=== PATIENT | female | born 1940 | race Caucasian/White ===

== ENCOUNTER 2019-06-21 10:32 | Inpatient (IN) | payer MEDICARE ==
[~2019-06-21] VITALS: Ht 157.5 cm; Wt 76.2 kg
[2019-06-21] MEDS ORDERED: ALBUTEROL/IPRATROPIUM 3 ML NEB NEB ONE (10:45)
[2019-06-21] MEDS ORDERED: METHYLPREDNISOLONE SOD SUCC 125 MG/2ML VIAL IV ONE (10:45)
[2019-06-21 11:46] LABS: BASOPHILS % 0.4 % (0.0-1.0); EOSINOPHILS # (AUTO) 0.2 (0.0-0.4); EOSINOPHILS % 2.4 % (0.0-6.0); HEMATOCRIT 38.3 % (34.2-44.1); HEMOGLOBIN 13.1 g/dL (12.0-16.0); LYMPHOCYTES # (AUTO) 1.5 (1.0-3.2); LYMPHOCYTES % 18.7 % (18.0-39.1); MEAN CORPUSCULAR HEMOGLOBIN 32.5 pg (28-32); MEAN CORPUSCULAR HGB CONC 34.2 g/dL (31-35); MONOCYTES # (AUTO) 0.5 (0.2-0.8); MONOCYTES % 5.6 % (4.4-11.3); NEUTROPHILS % 72.8 % (38.7-80.0); PLATELET COUNT 202 x10e3/uL (140-360); RED BLOOD COUNT 4.03 x10e6/uL (3.6-5.1); RED CELL DISTRIBUTION WIDTH 11.8 % (11.7-14.4)
[2019-06-21 12:04] LABS: ALANINE AMINOTRANSFERASE 8 IU/L (0-55); ALBUMIN 3.7 g/dL (3.5-5.0); ALKALINE PHOSPHATASE 98 IU/L (40-150); ANION GAP 13.8 mmol/L (8-16); BLOOD UREA NITROGEN 19 mg/dL (7-26); BUN/CREATININE RATIO 23 (6-25); CALCIUM 10.4 mg/dL (8.4-10.2); CARBON DIOXIDE 23 mmol/L (22-29); CHLORIDE 97 mmol/L (98-107); CREATINE KINASE 31 IU/L (29-168); CREATININE, SERUM 0.81 mg/dL (0.57-1.11); EST GLOMERULAR FILTRATION RATE > 60 ML/MIN (60-); GLUCOSE 173 mg/dL (74-118); POTASSIUM 4.8 mmol/L (3.5-5.1); SODIUM 129 mmol/L (136-145)
--- NOTE | 2019-06-21 12:17 | NUR ---
straight cath inserted for ua via aseptic technique per md orders; urine output approx 30 cc; ua collected and sent to lab
[2019-06-21 12:37] LABS: CLARITY,URINE CLOUDY (CLEAR); COLOR,URINE YELLOW (YELLOW)
[2019-06-21 12:38] LABS: BILIRUBIN,URINE NEGATIVE (NEGATIVE); KETONES,URINE NEGATIVE (NEGATIVE); LEUKOCYTE ESTERASE ,URINE NEGATIVE (NEGATIVE); NITRITE,URINE NEGATIVE (NEGATIVE); PROTEIN,URINE DIPSTICK NEGATIVE (NEGATIVE); RBC,URINE 0-5 /HPF (0-5); URINE UROBILINOGEN 0.2 mg/dL (0.2 - 1)
[2019-06-21 12:39] LABS: BACTERIA,URINE MODERATE /HPF; EPITHELIAL CELLS,URINE MODERATE /LPF
[2019-06-21] MEDS ORDERED: MORPHINE SULFATE INJ 4 MG/ML INJ 1ML IV PRN ×2 (13:00→14:45)
--- NOTE | 2019-06-21 14:23 | Diagnostic Imaging Report ---
EXAM: CT Chest WITH contrast- Pulmonary Embolism Protocol INDICATION: Shortness of breath COMPARISON: None TECHNIQUE: Chest was scanned utilizing a multidetector helical scanner from the lung apex through the level of the diaphragm after administration of IV contrast. Thin section reconstructions were obtained with special concentration on the pulmonary arteries. Coronal and sagittal reformations were obtained. Pulmonary embolism protocol was performed. IV CONTRAST: 100 cc of Isovue 370 RADIATION DOSE: Total DLP: mGy*cm Dose modulation, iterative reconstruction, and/or weight based adjustment of the mA/kV was utilized to reduce the radiation dose to as low as reasonably achievable. COMPLICATIONS: None FINDINGS: LINES/ TUBES: None. PULMONARY ARTERIES: No filling defect is identified within the pulmonary arteries to the segmental level. The subsegmental pulmonary arteries are not well opacified. Main pulmonary artery measures 2.9 cm in diameter. LUNGS AND AIRWAYS: The central airways are patent. No focal consolidation or pulmonary edema. A right apical groundglass nodule measures up to 12 mm (series 3 image 22). Solid 4 mm left lower lobe pulmonary nodule (series 3 image 61). PLEURA: No pleural effusion. No pneumothorax. HEART AND MEDIASTINUM: There is a 2.0 x 1.9 cm hypodense nodule in the posterior right thyroid lobe. Coarse calcifications at the inferior aspect of the left thyroid lobe. No supraclavicular, mediastinal, or hilar lymphadenopathy. No axillary lymphadenopathy. The heart is not enlarged. No evidence of right heart strain. No pericardial effusion. Scattered atherosclerotic calcifications involve the coronary arteries, aorta, and great vessels. UPPER ABDOMEN: Limited contrast-enhanced images of the upper abdomen demonstrate no focal abnormality in the partially visualized liver, spleen, pancreas, or adrenals. There is a calcified gallstone in the partially visualized gallbladder. BONES: No acute osseous injury. Mild degenerative changes of the visualized spine. No suspicious lytic or blastic lesions. SOFT TISSUES: Unremarkable. IMPRESSION: No pulmonary embolism. Right apical groundglass nodule measures up to 12 mm. Left lower lobe solid 4 mm pulmonary nodule. Recommend chest CT at 6 months to confirm persistence, then CT every 2 years until 5 years of stable. 2.0 x 1.9 cm hypodense posterior right thyroid lobe nodule. Thyroid ultrasound is recommended for further evaluation. Cholelithiasis. Athetotic arterial calcifications including of the coronary arteries. Signed by: Jannette Turner MD on 06/21/2019 2:20 PM
[2019-06-21] MEDS ORDERED: ONDANSETRON HCL INJ 2MG/ML 2ML 2 MG/ML VIAL IV PRN (14:45)
--- OUTSIDE RECORDS SUMMARY | 2019-06-21 15:56 | XMS REPORT ---
Author Author [facility] Address Unknown Phone Unavailable Care Team Providers Care Electronics Processor Name Role Phone TAMICA HERNÁNDEZ Unavailable Unavailable Problems This patient has no known problems. Allergies, Adverse Reactions, Alerts This patient has no known allergies or adverse reactions. Medications This patient has no known medications. Results Test Description Test Time Test Comments Text Results Atomic Results Result Comments CT CHEST W 2019-06-21 14:08:00 [place] [address] Patient Name: DAPHNE ENGLAND MR #: [id number] : 1940 Age/Sex: 79/F Req #: [id number] Adm Physician: Ordered by: TAMICA HERNÁNDEZ DO Report #: [id number] Location: ER Room/Bed: Procedure: [id number] CT/CT CHEST W Exam Date: 06/21/19 Exam Time: 1300 REPORT STATUS: Signed EXAM: CT Chest WITH contrast- Pulmonary Embolism Protocol INDIC ATION: Shortness of breath COMPARISON: None TECHNIQUE: Chest was scanned utilizing a multidetector helical scanner from the lung apex through the level of the diaphragm after administration of IV contrast. Thin section reconstructions were obtained with special concentration on the pulmonary arteries. Coronal and sagittal reformations were obtained. Pulmonary embolism protocol was performed. IV CONTRAST: 100 cc of Isovue 370 RADIATION DOSE: Total DLP: mGy*cm Dose modulation, iterative reconstruction, and/or weight based adjustment of the mA/kV was utilized to reduce the radiation dose to as low as reasonably achievable. COMPLICATIONS: None FINDINGS: LINES/ TUBES: None. PULMONARY ARTERIES: No filling defect is identified within the pulmonary arteries to the segmental level. The subsegmental pulmonary arteries are not well opacified. Main pulmonary artery measures 2.9 cm in diameter. LUNGS AND AIRWAYS: The central airways are patent. No focal consolidation or pulmonary edema. A right apical groundglass nodule measures up to 12 mm (series 3 image 22). Solid 4 mm left lower lobe pulmonary nodule (series 3 image 61). PLEURA: No pleural effusion. No pneumothorax. HEART AND MEDIASTINUM: There is a 2.0 x 1.9 cm hypodense nodule in the posterior right thyroid lobe. Coarse calcifications at the inferior aspect of the left thyroid lobe. No supraclavicular, mediastinal, or hilar lymphadenopathy. No axillary lymphadenopathy. The heart is not enlarged. No evidence of right heart strain. No pericardial effusion. Scattered atherosclerotic calcifications involve the coronary arteries, aorta, and great vessels. UPPER ABDOMEN: Limited contrast-enhanced images of the upper abdomen demonstrate no focal abnormality in the partially visualized liver, spleen, pancreas, or adrenals. There is a calcified gallstone in the partially visualized gallbladder. B ONES: No acute osseous injury. Mild degenerative changes of the visualized spine. No suspicious lytic or blastic lesions. SOFT TISSUES: Unremarkable. IMPRESSION: No pulmonary embolism. Right apical groundglass nodule measures up to 12 mm. Left lower lobe solid 4 mm pulmonary nodule. Recommend chest CT at 6 months to confirm persistence, then CT every 2 years until 5 years of stable. 2.0 x 1.9 cm hypodense posterior right thyroid lobe nodule. Thyroid ultrasound is recommended for further evaluation. Cholelithiasis. Athetotic arterial calcifications including of the coronary arteries. Signed by: Ebony Turner MD on 06/21/2019 2:20 PM Dictated By: EBONY TURNER MD [id number] Transcribed By: SABA on 06/21/19 1420 COPY TO: TAMICA HERNÁNDEZ DO
--- NOTE | 2019-06-21 17:30 | NUR ---
Bilateral buttocks redness noted. Skin intact.
--- NOTE | 2019-06-21 17:30 | NUR ---
Received patient from ER. Family members at bedside. Denies pain.
--- NOTE | 2019-06-21 17:35 | NUR ---
Patient has redness/ rashes under the breast folds area and groin area. Skin intact, no open wounds.
[2019-06-21 17:51] VITALS: BP 144/64
[2019-06-21 17:52] VITALS: BP 144/64
[2019-06-21 17:54] VITALS: BP 144/64
[2019-06-21] MEDS ORDERED: LISINOPRIL10 MG PO (18:24)
[2019-06-21] MEDS ORDERED: GLIMEPIRIDE2 MG PO (18:24)
[2019-06-21] MEDS ORDERED: MONTELUKAST SOD10 MG PO (18:24)
[2019-06-21] MEDS ORDERED: SINEMET 25-1001 EACH PO (18:24)
[2019-06-21] MEDS ORDERED: VENTOLIN HFA18 GM INH (18:24)
[2019-06-21] MEDS ORDERED: MAGNESIUM OXID400 MG PO (18:24)
[2019-06-21] MEDS ORDERED: QUESTRAN PACKET4 GM PO (18:24)
[2019-06-21] MEDS ORDERED: METFORMIN HCL500 MG PO (18:24)
[2019-06-21] MEDS ORDERED: ZOLOFT50 MG PO (18:24)
[2019-06-21] MEDS ORDERED: POTASSIUM CHLO10 ME1 PO (18:24)
[2019-06-21] MEDS ORDERED: SODIUM CHLORIDE 0.9% 50ML 50 ML ONE (18:40)
[2019-06-21] MEDS ORDERED: IOPAMIDOL 370 MG/ML 200 ML INFUS..BTL INJ ONE (18:40)
--- NOTE | 2019-06-21 19:15 | NUR ---
Report given to awake overnight monitor. Respiration even and unlabored without SOB. Call light in reach.
--- NOTE | 2019-06-21 19:27 | NUR ---
Received report from previous nurse. Call light within reach. Family at bedside. Patient in bed.
[2019-06-21 19:51] LABS: CREATINE KINASE 30 IU/L (29-168)
[2019-06-21] MEDS ORDERED: HYDROCODONE/APAP 5MG-325MG TAB PO PRN (20:15)
[2019-06-21] MEDS ORDERED: ALBUTEROL/IPRATROPIUM 3 ML NEB NEB PRN (20:15)
[2019-06-21] MEDS ORDERED: DEXTROSE 50% SYRINGE 50 ML IV PRN (20:15)
--- NOTE | 2019-06-21 20:19 | NUR ---
Called and talk to Dr. Giron about patient needing covering for her sugar. He ordered moderate sliding scale, norco 5 mg PRN, Tylenol 650 mg PRN, melatonin 5 mg PRN, and Doneb. Also, to resume all home medication except potassium chloride and metformin
--- NOTE | 2019-06-21 20:25 | NUR ---
Called and talked to Dr. Giron about patient's blood sugar of 498. Dr. Giron said to give 20 units of Lispro and have hemoglobin A1C in the morning.
[2019-06-21] MEDS: INSULIN LISPRO 100 UNIT/1 ML 3ML VIAL SQ SCH (20:37)
[2019-06-21 20:55] VITALS: BP 158/65
[2019-06-21] MEDS ORDERED: MELATONIN 5 MG TABLET PO SCH (21:00)
[2019-06-21] MEDS ORDERED: MELATONIN 5 MG TABLET PO PRN (21:00)
[2019-06-21 21:09] VITALS: BP 158/65
[2019-06-21] MEDS ORDERED: HYDRALAZINE HCL 20 MG/ML VIAL IV PRN (22:15)
[2019-06-21] MEDS ORDERED: ALBUTEROL SULFATE HFA 8GM INHALATION AEROSOL INH PRN (22:30)
[2019-06-21] MEDS ORDERED: NYSTATIN 15 GM POWDER UD BTL TOP PRN (23:15)
[2019-06-22] VITALS (8 sets, daily range): BP systolic 115–195; BP diastolic 49–82
[2019-06-22] MEDS: CEFTRIAXONE SOD 1 GM/NS 50 ML 50 ML IV SCH ×2 (00:12→22:45)
[2019-06-22] MEDS: DOXYCYCLINE 100MG/NS 100ML 100 ML IV SCH ×3 (00:16→23:30)
[2019-06-22] MEDS ORDERED: SODIUM CHLORIDE 0.9% 250ML 250 ML ONE ×2 (00:20→22:55)
--- NOTE | 2019-06-22 02:48 | Consultation ---
DATE OF CONSULTATION: 06/21/2019 Pulmonary Medicine Consult REASON FOR REFERRAL: Hypoxemia. HISTORY OF PRESENT ILLNESS: Ms. Hu is a pleasant 79-year-old female with hypoxemia. The patient claims she has one month prodrome of shortness of breath, possible airways congestion. She was also no energy for the recent month. The patient went to a trip for [place] for five days. Two day, she was at [place] with reported elevation from 2800 m at the base to 3400 m top elevation. The patient was two days there, mostly inactive, visiting her daughter who lives there. However, the patient was hospitalized for another couple of days due to reported high-altitude pulmonary edema reportedly. The patient was previously on breathing treatments prior to going up to [place] as part baseline and her doctor recommended her to continue these prior to sending. The patient came back to [place]. However, the patient continues to have symptoms of malaise and shortness of breath. Therefore, she presents to [facility]. Chest x-ray demonstrates 34 mm main pulmonary artery trunk, bilateral mild patchy opacities including and nodular formations that are ground-glass, additional anterior curvature of the thoracic spine mainly. Oxygen saturation 92% on 3 L/minute nasal cannula oxygen. She is admitted and hospitalized for further evaluation. Additionally, CTA had demonstrated no pulmonary embolism and 2.0 x 1.9 cm right thyroid lobe nodule. The patient with history of allergies that are seasonal. She claims to be taken nebulized therapy including albuterol and ProAir inhaler for the allergies. She has no history of asthma. GERD 1-2 times per week and she is on Tums therapy. Her baseline exercise tolerance is one-half block to one block walking on flat surface using a walker for balance as she had many falls in the past. PAST MEDICAL HISTORY: Hypertension, diabetes, debility/weakness, allergies seasonal, mild GERD. MEDICATIONS: Medication list includes Ventolin, cholestyramine, glimepiride, magnesium, metformin, potassium chloride, Sinemet, lisinopril, montelukast, and sertraline. ALLERGIES: NO KNOWN DRUG ALLERGIES. SOCIAL HISTORY: No alcohol, no drugs. The patient smoked from age 31 to 44, two packs per day. 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 Currently lives with her daughter in a back apartment separate. FAMILY HISTORY: Noncontributory to this condition. REVIEW OF SYSTEMS: GENERALLY: No weight changes. OPHTHALMOLOGIC: No double vision. ENT: No mouth ulcers. IMMUNOLOGIC: No lupus. PULMONARY: No hemoptysis. CARDIAC: No TN. GASTROINTESTINAL: No constipation. GENITOURINARY: No blood in urine. DERMATOLOGIC: No rash. MUSCULOSKELETAL: Mild arthritis. DERMATOLOGIC: No rashes. PSYCHIATRIC: No active depression. OBJECTIVE: VITAL SIGNS: Afebrile, vital signs noted and reviewed per the chart record. 158/65, heart rate 95, other vitals per record. GENERAL: In no acute distress, talkative, pleasant, in bed. HEENT: Normocephalic and atraumatic. NECK: Supple. Throat midline. LUNGS: Bilateral air entry with reasonable air entry, limited evaluation due to the patient's posture. BACK: Possibly with anterior curvature at T-spine mainly. CARDIAC: S1, S2. No murmurs, rubs, or gallops. ABDOMINAL EXAM: Soft and nontender. EXTREMITIES: No clubbing, no cyanosis. There is no edema. INTEGUMENT: No rash, no purpura. LABORATORY DATA: 129 sodium, 4.8 potassium, 23 bicarbonate, 19 BUN, 0.8 creatinine. Lactic acid normal. LFTs mostly unremarkable. Calcium is 10.4. Total protein 7.4, albumin 3.7. 8 white count, 30 hematocrit, and 202 platelets. Urinalysis with 11-20 white blood cells. No RBCs. BNP less than 10. IMPRESSION: 1. Hypoxemia, suspect multifactorial. Highest considerations include possibility of chronic obstructive pulmonary disease, although family stated clearly no chronic obstructive pulmonary disease history. Possible kyphosis/extrathoracic lung restriction, rule out other disorders. 2. Suspected kyphosis. 3. Former smoker, quit long ago. [id number] history. Rule out chronic obstructive pulmonary disease. 4. History of possible bronchoreactive disease, asthma. 5. Seasonal allergies. 6. Mild gastroesophageal reflux disease. 7. Baseline debility, the patient declares balance related limitation. 8. Recent travel, recent treatment as high-altitude pulmonary edema per the patient. 9. Hypertension. 10. Diabetes. 11. Medication list including dopaminergic agent. 12. Multiple lung nodules, possible residual high-altitude pulmonary edema changes, possible pneumonia, possible other. Get Physical therapy to see the patient and check her functionality. When she is upright, check her posture. Considerations clearly for pulmonary function testing given the complex scenario here. The patient with CAT scan pneumonitis/nodules, treat for pneumonia over short course. The patient radiography needs followup until clearance. It is reasonable to treat her as possible asthma and to treat her definite history of allergies. Followup per oxygen as she weans off oxygen while she may need to go home on oxygen. It is hard to understand what happened in [place], noting that she did go into minimum altitude that are associated with high-altitude pulmonary edema, although there is definitely a syndrome that was worsening and initiated before she even traveled. Thank you very much, Dr. Giron, for this consult. Please call for questions. MD NEYMAR Sands/MODL /[id number]
--- NOTE | 2019-06-22 05:13 | History and Physical ---
CHIEF COMPLAINT: Shortness of breath. HISTORY OF PRESENT ILLNESS: This is a 79-year-old female, who has a history of type 2 diabetes, Parkinson disease, and hypertension, who presented to the emergency room with complaints of shortness of breath. The patient reports about a month ago she went to her primary care physician as she was planning a trip to go to [place]. At that time, she was told and she was cleared that [place] can good [place]. While she was there, she reports she was very hypoxic on high altitudes, went to a local emergency room, was found to be very hypoxic. The patient does not know of the actual O2 saturations and was admitted to the hospital. Upon discharge from there, she was not set up on any home O2. She was reportedly doing much better and was discharged home. After her trip from [place], she reported back to her primary care physician. She is very poor historian. She states that she was on oxygen, but then she stopped taking it, she could not describe exactly when it was stopped. Today, she reports increasing shortness of breath, ongoing for the last several days and came into the emergency room for further evaluation and management. The patient was seen and evaluated at bedside on the medical floor. She is currently doing well with no other issues at this time. She is on nasal cannula. She denies any chest pain or any palpitations. No history of any heart failure. She does report she was a smoker for about 12 years about 35 years ago. She is currently a nonsmoker. REVIEW OF SYSTEMS: 1. Pertinent Positives: Shortness of breath. 2. Pertinent Negatives: Denies any chest pain, palpitation, nausea, vomiting, diarrhea, dysuria, hematuria, frequency, urgency, lightheadedness, dizziness, abdominal pain, headaches, cough, congestion, fever, or any other complaints. The rest of 14-point review of systems are reviewed with the patient and are negative. ALLERGIES: NO KNOWN DRUG ALLERGIES. HOME MEDICATIONS: The patient takes albuterol, levodopa carbidopa 1 tablet b.i.d., Questran, , lisinopril, magnesium oxide, metformin, Singulair, potassium, and Zoloft. PAST MEDICAL HISTORY: Type 2 diabetes, hypertension, Parkinson disease, and history of depression. PAST SURGICAL HISTORY: Reports none. FAMILY HISTORY: Hypertension and diabetes. SOCIAL HISTORY: No drugs or alcohol. She is a former smoker 35 years ago, quit. She lives alone. Has children. PHYSICAL EXAMINATION: VITAL SIGNS: Temperature is 98.1, pulse 97, respiratory rate is 20, blood pressure 150/65, and pulse ox 92%. She is on 3 L nasal cannula. GENERAL: In no acute distress, alert and oriented x3. Cooperative on examination. HEENT: Head normocephalic and atraumatic. Eyes; pupils are equal, round, and reactive to light bilaterally. Extraocular movements intact bilaterally. Throat; no evidence of any erythema or exudates in the posterior pharynx. Has poor dentition. NECK: Supple. Good range of motion. PULMONARY: Clear to auscultation bilaterally. No wheezing, rales, or rhonchi. No crackles appreciated. CARDIOVASCULAR: Positive S1 and S2. No murmurs, rubs, or gallops appreciated. ABDOMEN: Soft, nondistended, and nontender to palpation. Bowel sounds present. MUSCULOSKELETAL: Strength is 5/5 throughout. No evidence of any muscle deficits on examination. No weakness appreciated. NEUROLOGIC: Cranial 2 through 12 are grossly intact. No evidence of any neurological deficits on exam. SKIN: Intact. Warm to touch. Good cap refill. PSYCHIATRIC: Normal affect and mood. EXTREMITIES: No edema. Good range of motion throughout. LABORATORY DATA: Lab findings show white count of 8.2, hemoglobin 13, Hematocrit is 38, and platelets of 202. Chemistry; sodium 129, potassium 4.8, chloride 97, bicarb 23, anion gap of 13, BUN is 19, creatinine is 0.81, and glucose is 173. Her lactic acid 11.6, but normal at this hospital, and calcium is 10.4. Total bilirubin is 0.6, AST 9, ALT 8, and alkaline phosphatase 98. CK 31, troponins were all negative. BNP is less than 10. Total protein 7.4, albumin is 3.7. Urinalysis, wbc's 11 to 20, cloudy urine. MICROBIOLOGY: Blood cultures are pending. CT of the chest PE protocol shows no evidence of any pulmonary embolism. There is a right apical ground-glass nodule measuring 12 mm. Left lower lobe solid 4 mm pulmonary nodule. Repeat CT as an outpatient. There is a 2 x 1.9 cm hypodense posterior right thyroid lobe nodule. Cholelithiasis. IMPRESSION: 1. Shortness of breath, unknown etiology at this time, workup in progress. 2. Morbid obesity. 3. Type 2 diabetes. 4. Hypertension. 5. History of depression. PLAN: At this time, Pulmonary has been consulted. CT chest PE protocol found to be negative for any pulmonary embolism. There is evidence of pulmonary nodules, will need outpatient followup. I discussed that with the patient as well. There is also some thyroid nodules, which I recommended for her to follow up as an outpatient, which she verbalized understanding. While here, we are going to resume her same home medications. Put her on insulin sliding scale. Get an A1c. She was given steroids from the ER physician. Put on neb treatments. Resume same antihypertensive medications. Add p.r.n. hydralazine. Pain control added. Lovenox for DVT prophylaxis. Heart healthy diet. We will also order a 2D echo as well at this time. MD EMILIA Odonnell/YAIR /[id number]
[2019-06-22 07:03] LABS: CREATINE KINASE MB 2.3 ng/mL (0-5.0)
--- NOTE | 2019-06-22 07:20 | NUR ---
Patient in bed. Call light within reach. Gave report to oncoming nurse.
[2019-06-22] MEDS: INSULIN LISPRO 100 UNIT/1 ML 3ML VIAL SQ SCH ×4 (07:30→21:00)
--- NOTE | 2019-06-22 08:48 | Diagnostic Imaging Report ---
Chest, 1 view, 06/22/2019. History: Pneumonia. Comparison: CT chest 06/21/2019. Findings: The cardiomediastinal silhouette and pulmonary vasculature are within normal limits for a portable exam. There is no focal consolidation or pleural effusion. There are no acute osseous or soft tissue abnormalities. Impression: Unremarkable portable chest. Signed by: Owen Millard on 06/22/2019 8:45 AM
[2019-06-22] MEDS: GLIMEPIRIDE 2 MG TAB PO SCH ×2 (08:55→16:27)
[2019-06-22] MEDS ORDERED: MONTELUKAST SODIUM 10 MG TAB PO SCH (09:00)
[2019-06-22] MEDS ORDERED: CARBIDOPA/LEVODOPA 25/100 TAB PO SCH (09:00)
[2019-06-22] MEDS ORDERED: LISINOPRIL 10 MG TAB PO SCH (09:00)
[2019-06-22] MEDS ORDERED: LISINOPRIL 20 MG TAB PO SCH (09:00)
[2019-06-22] MEDS: MAGNESIUM OXIDE 400 MG TAB PO SCH (10:00)
[2019-06-22] MEDS: MONTELUKAST SODIUM 10 MG TAB PO SCH (10:00)
[2019-06-22] MEDS: CARBIDOPA/LEVODOPA 25/100 TAB PO SCH ×2 (10:00→16:27)
--- NOTE | 2019-06-22 12:00 | Progress Note ---
DATE: 06/22/2019 Medicine Progress Note. SUBJECTIVE: The patient was doing well today with no complaints. She is still was on oxygen. Denies any shortness of breath. Pulmonary has come by to evaluate the patient for further management and care. OBJECTIVE: VITAL SIGNS: Temperature 97.5, pulse 88, respiratory rate 22, blood pressure was 195/82, pulse ox 95% on 2 L nasal cannula. GENERAL: Not in acute distress, alert and oriented x3. Cooperative on examination. HEENT: Head is normocephalic and atraumatic. Eyes; pupils are equal, round, and reactive to light bilaterally. Extraocular movements are intact bilaterally. NECK: Supple. Good range of motion. Throat; no evidence of erythema or exudates in the posterior pharynx. Has poor dentition. PULMONARY: Clear to auscultation bilaterally. No wheezing, rales, or rhonchi. No crackles appreciated. CARDIOVASCULAR: Positive S1, S2. No murmurs, rubs, or gallops. ABDOMEN: Soft, nondistended, and nontender to palpation. Bowel sounds present. MUSCULOSKELETAL: Strength is 5/5 throughout. No evidence of any muscle deficits on examination. No weakness appreciated. NEUROLOGIC: Cranial nerves II through XII grossly intact. No evidence of neurological exam. SKIN: Intact. Warm to touch. Good cap refill. PSYCHIATRIC: Normal affect and mood. EXTREMITIES: No edema. Good range of motion throughout. LAB FINDINGS: Show white count 8.2, hemoglobin 13, hematocrit is 38, and platelets of 202. Chemistry reviewed. Urinalysis negative. Blood cultures are pending. IMAGING STUDIES: Chest x-ray this morning shows unremarkable portable chest x-ray. IMPRESSION: 1. Hypoxemia with underlying shortness of breath with currently, which could be secondary to underlying chronic obstructive pulmonary disease. 2. Hypertension. 3. Type 2 diabetes. 4. History of depression. 5. Morbid obesity. 6. Pulmonary nodules-the patient will need outpatient followup with repeat CT at a later day as an outpatient and which the patient verbalized. PLAN: At this time, from a hypoxia standpoint, the workup is being performed by Pulmonary. We will follow up Pulmonary recommendations. The patient is on IV antibiotics, in the event this is an infectious etiology. We will get physical therapy as recommended by Pulmonary. In terms of her diabetes, we will continue with insulin sliding scale. Her A1c was found to be 8.1. We will continue to monitor closely in terms of her diabetes and sugars. In relation to her hypertension, blood pressure extremely elevated. I will go ahead and increase the lisinopril to 20 mg twice a day. There is also 2D echo pending some waiting for those final results. We will get PT and OT, heart healthy diet and Lovenox for DVT prophylaxis. I discussed plan of care with nursing staff as well and the patient verbalized understanding. MD EMILIA Odonnell/YAIR /[id number]
--- NOTE | 2019-06-22 12:30 | NUR ---
WITH STANDBY ASSIST AND USE OF WALKER, PT OOB TO BATHROOM , VOIDING WITHOUT DIFFICULTY, NOW SITTING IN BS CHAIR, CALL LIGHT WITHIN REACH
[2019-06-22] MEDS ORDERED: ONDANSETRON HCL 4 MG ORAL DISINTEGRATING TAB PO PRN (13:15)
--- NOTE | 2019-06-22 13:40 | NUR ---
WITH STANDBY ASSIST AND USE OF WALKER , PT OOB TO BR
--- NOTE | 2019-06-22 14:01 | NUR ---
REPORT TO MILAGROS CANNON TAKING OVER CARE OF PT, NO CHANGE IN CONDITION
[2019-06-22] MEDS: LISINOPRIL 20 MG TAB PO SCH (16:26)
[2019-06-22] MEDS: ENOXAPARIN SOD INJ 40 MG/0.4 ML SYR SC SCH (16:27)
--- NOTE | 2019-06-22 19:10 | NUR ---
Bedside rounds completed with morning nurse. Pt alert to name. Lying in bed HOB 30 degrees. Denies pain at this time. Family at bedside. Call landry within reach. Bed low and locked. Will continue to monitor.
--- NOTE | 2019-06-22 19:49 | NUR ---
Pulmonary Medicine Date: 06/22/19 SUBJECTIVE: 3 l/min oxygen. nasal cannula delivery. walked ate, BM+ she feels mildly better, not much REVIEW OF SYSTEMS: no chest pain, no epistaxis OBJECTIVE: VITAL SIGNS: vital signs noted and reviewed per the chart record. GENERAL: NAD, talkative, pleasant HEENT: Normocephalic and atraumatic. NECK: Supple. Throat midline. LUNGS: Bilateral reasonable air entry, no wheezes CARDIAC: S1, S2. No murmurs, rubs, or gallops. ABDOMINAL EXAM: Soft and nontender. EXTREMITIES: No clubbing, no cyanosis. no edema. INTEGUMENT: No rash, no purpura. LABORATORY DATA: no new updates IMPRESSION: 1. Hypoxemia, suspect multifactorial. Highest considerations include possibility of chronic obstructive pulmonary disease (although family states clearly that there is no chronic obstructive pulmonary disease history). Possible kyphosis/extrathoracic lung restriction, rule out other disorders. 2. Suspected significant kyphosis. 3. Former smoker, quit long ago. [id number] history. Rule out chronic obstructive pulmonary disease. 4. History of possible bronchoreactive disease, possible asthma. 5. Seasonal allergies. 6. Mild gastroesophageal reflux disease. 7. Baseline debility, the patient declares balance related limitation. 8. Recent travel, recent treatment as high-altitude pulmonary edema per the patient. 9. Hypertension. 10. Diabetes. 11. Medication list including dopaminergic agent. 12. Multiple lung nodules, possible residual high-altitude pulmonary edema pneumonitis possible pneumonia, possible other. Continue antibiotics PT mobilization, assess spine and functionality 2 view CXR Outpatient pulmonary function testing Needs follow up of the CAT scan pneumonitis/nodules, followup until clearance. Treat as possible asthma and treat her definite history of allergies. Wean off oxygen if feasible Thank you very much, Dr. Giron, for this consult. Please call for questions.
[2019-06-22] MEDS ORDERED: SERTRALINE HCL 50 MG TAB PO SCH (21:00)
[2019-06-22] MEDS: SERTRALINE HCL 50 MG TAB PO SCH (21:00)
[2019-06-22] MEDS: CHOLESTYRAMINE 4 GM PACKET PO SCH (22:00)
--- NOTE | 2019-06-22 22:01 | Diagnostic Imaging Report ---
EXAMINATION: CHEST 2 VIEWS INDICATION: Pneumonia. COMPARISON: None FINDINGS: PA and lateral views TUBES and LINES: None. LUNGS: Lung volumes are adequate. Obscuration of the inferior left heart border by a hazy opacity. Bibasilar atelectasis. PLEURA: No pleural effusion or pneumothorax. HEART AND MEDIASTINUM: The cardiomediastinal silhouette appears normal in size although the left inferior heart border is obscured. Aortic calcifications. BONES AND SOFT TISSUES: No acute osseous lesion. Soft tissues are unremarkable. Degenerative changes in the spine. UPPER ABDOMEN: No free air under the diaphragm. Surgical clips in the right upper quadrant IMPRESSION: Hazy opacity obscures the inferior left heart border, possibly due to atelectasis, mediastinal fat, or airspace disease such as pneumonia. Signed by: Vienet Betancourt DO on 06/22/2019 9:58 PM
[2019-06-23] VITALS (8 sets, daily range): BP systolic 104–129; BP diastolic 20–60
[2019-06-23 05:38] LABS: BASOPHILS % 0.4 % (0.0-1.0); EOSINOPHILS # (AUTO) 0.3 (0.0-0.4); EOSINOPHILS % 3.2 % (0.0-6.0); HEMATOCRIT 34.8 % (34.2-44.1); HEMOGLOBIN 11.7 g/dL (12.0-16.0); LYMPHOCYTES # (AUTO) 2.7 (1.0-3.2); LYMPHOCYTES % 33.4 % (18.0-39.1); MEAN CORPUSCULAR HGB CONC 33.6 g/dL (31-35); MEAN CORPUSCULAR VOLUME 95.1 fL (81-99); MONOCYTES # (AUTO) 0.5 (0.2-0.8); NEUTROPHILS # (AUTO) 4.6 (2.1-6.9); NEUTROPHILS % 56.8 % (38.7-80.0); PLATELET COUNT 187 x10e3/uL (140-360); RED BLOOD COUNT 3.66 x10e6/uL (3.6-5.1); RED CELL DISTRIBUTION WIDTH 11.6 % (11.7-14.4)
[2019-06-23 05:59] LABS: ANION GAP 11.6 mmol/L (8-16); BLOOD UREA NITROGEN 22 mg/dL (7-26); BUN/CREATININE RATIO 29 (6-25); CALCIUM 9.6 mg/dL (8.4-10.2); CARBON DIOXIDE 23 mmol/L (22-29); CHLORIDE 98 mmol/L (98-107); CREATININE, SERUM 0.75 mg/dL (0.57-1.11); EST GLOMERULAR FILTRATION RATE > 60 ML/MIN (60-); GLUCOSE 130 mg/dL (74-118); POTASSIUM 4.6 mmol/L (3.5-5.1); SODIUM 128 mmol/L (136-145)
--- NOTE | 2019-06-23 07:10 | NUR ---
PATIENT IS AWAKE AND IN STABLE CONDITION WITH NO S/S OF RESPIRATORY DISTRESS. NO PAIN VOICED. TELEMETRY APPLIED. 02 APPLIED AT 2L NC. CALL LIGHT IS WITHIN REACH, PATIENT INSTRUCTED TO CALL FOR ASSISTANCE NEEDED.
[2019-06-23] MEDS: INSULIN LISPRO 100 UNIT/1 ML 3ML VIAL SQ SCH ×4 (07:30→21:00)
[2019-06-23] MEDS: GLIMEPIRIDE 2 MG TAB PO SCH ×2 (10:08→16:49)
[2019-06-23] MEDS: CARBIDOPA/LEVODOPA 25/100 TAB PO SCH ×2 (10:08→16:49)
[2019-06-23] MEDS: MONTELUKAST SODIUM 10 MG TAB PO SCH (10:08)
[2019-06-23] MEDS: LISINOPRIL 20 MG TAB PO SCH ×2 (10:08→16:49)
[2019-06-23] MEDS: MAGNESIUM OXIDE 400 MG TAB PO SCH (10:08)
--- NOTE | 2019-06-23 12:19 | NUR ---
PATIENT OFF THE OXYGEN AND IS ON ROOM AIR- PATIENT WORKED WITH PHYSICAL THERAPY AND O2 SAT DECREASED TO 88. RECEIVED ORDER FROM DR. FULLER FOR HOME O2 EVAL IF PATIENT O2 SAT DECREASED BELOW 89.
[2019-06-23] MEDS: DOXYCYCLINE 100MG/NS 100ML 100 ML IV SCH (12:42)
--- NOTE | 2019-06-23 14:37 | Progress Note ---
DATE: 06/23/2019 Medicine Progress Note SUBJECTIVE: The patient reportedly feels much better today with no other issues. She is still on 2 L nasal cannula, which we are working on and trying to wean her off and if so she may need to qualify for home O2. Discussed with nursing staff. PHYSICAL EXAMINATION: VITAL SIGNS: Temperature 96.1, pulse 60, respiratory rate 21, blood pressure 120/60, pulse ox 96% on 2 L nasal cannula. GENERAL: Not in acute distress. Alert and oriented x3. Cooperative on examination. HEENT: Head; normocephalic, atraumatic. Eyes; pupils are equal, round, and reactive to light bilaterally. Extraocular movements are intact bilaterally. Throat; no evidence of erythema or exudates in the posterior pharynx. Has poor dentition. NECK: Supple. Good range of motion. PULMONARY: Clear to auscultation bilaterally. No wheezing, rales, or rhonchi. No crackles appreciated. CARDIOVASCULAR: Positive S1, S2. No murmurs, rubs, or gallops. ABDOMEN: Soft, nondistended, and nontender to palpation. Bowel sounds present. MUSCULOSKELETAL: Strength is 5/5 throughout. No evidence of any muscle deficits on examination. No weakness appreciated. NEUROLOGIC: Cranial nerve II through XII grossly intact. No evidence of any neurological deficits on exam. SKIN: Intact. Warm to touch. Good cap refill. PSYCHIATRIC: Normal affect and mood. EXTREMITIES: No edema. Good range of motion throughout. LABORATORY DATA: Labs show white count 8.1, hemoglobin 11.7, hematocrit 34, platelets of 187. Chemistry; sodium 128, potassium 4.6, chloride 98, bicarb 23, anion gap of 11, BUN 23, creatinine 0.75, glucose is 130, calcium is 9.6. MICROBIOLOGY: Blood cultures are no growth. Chest x-ray from last night shows hazy opacity obscures inferior left heart border, possibly due to atelectasis, mediastinal fat, or airspace disease such as pneumonia. 2D echo, EF of 56%. IMPRESSION: 1. Hypoxemia secondary to shortness of breath, could be secondary to chronic obstructive pulmonary disease. Possible underlying infectious etiology. 2. Hypertension. 3. Type 2 diabetes. 4. History of depression. 5. Morbid obesity. 6. Pulmonary nodules. We will need outpatient follow. Repeat CT at a later date. PLAN: At this time, hypoxia workup is being managed by Pulmonary. We will continue follow pulmonary recommendations. Continue with IV antibiotics for possible underlying infectious etiology. We will also try to wean her off oxygen if possible. If not, we will try to arrange for home O2. Continue with insulin sliding scale for her diabetes. Her blood pressure is much improved with the addition of lisinopril. As for her 2D echo results shows an EF of 56%, which is stable. Continue working with PT and OT. Lovenox for DVT prophylaxis. Discussed plan of care with nursing staff and the patient at bedside and she verbalized understanding. MD EMILIA Odonnell/YAIR /[id number]
--- NOTE | 2019-06-23 15:20 | NUR ---
WOUND CARE CONSULTATION: THIS IS A 79 YEAR OLD FEMALE PATIENT ADMITTED TO [facility] FOR HYPOXIA AND SHORTNESS OF BREATH. HEAD TO TOE SKIN ASSESSMENT PERFORMED. PATIENT HAS DENUDED AREAS OF SKIN NOTED TO BILATERAL BREAST FOLDS WITH YEASTLIKE APPEARANCE. SKIN INTACT. LABS: WBC8.15 HGB11.7 [id number] ALB3.7 RECOMMENDATIONS: -CONTINUE ALTERNATING PRESSURE RELIEF MATTRESS. -CONTINUE BILATERAL HEEL PROTECTORS WITH PILLOW SUSPENSION. -TURN EVERY 2 HOURS AND PRN. -NURSING TO CLEAN BILATERAL BREAST FOLDS WITH SOAP AND WATER, PAT DRY, APPLY NYSTATIN POWDER BID AND PRN. THANK YOU FOR THIS WOUND CARE CONSULT. Addendum: 06/23/19 at 1532 by Vianey Rizzo RN Amended: Links added.
[2019-06-23] MEDS: ENOXAPARIN SOD INJ 40 MG/0.4 ML SYR SC SCH (16:49)
--- NOTE | 2019-06-23 19:04 | NUR ---
Pulmonary Medicine Date: 06/23/19 SUBJECTIVE: RA fio2 93% saturation about to do therapy ate, BM+ REVIEW OF SYSTEMS: no chest pain, no epistaxis OBJECTIVE: VITAL SIGNS: vital signs noted and reviewed per the chart record. GENERAL: NAD, talkative, pleasant HEENT: Normocephalic and atraumatic. NECK: Supple. Throat midline. LUNGS: Bilateral reasonable air entry, no wheezes CARDIAC: S1, S2. No murmurs, rubs, or gallops. ABDOMINAL EXAM: Soft and nontender. EXTREMITIES: No clubbing, no cyanosis. no edema. INTEGUMENT: No rash, no purpura. LABORATORY DATA: no new updates IMPRESSION: 1. Hypoxemia, suspect multifactorial. Highest considerations include possibility of chronic obstructive pulmonary disease (although family states clearly that there is no chronic obstructive pulmonary disease history). Some kyphosis/extrathoracic lung restriction suspected, rule out other disorders. 2. kyphosis NOS. 3. Former smoker, quit long ago. [id number] history. Rule out chronic obstructive pulmonary disease. 4. History of possible bronchoreactive disease, possible asthma. 5. Seasonal allergies. 6. Mild gastroesophageal reflux disease. 7. Baseline debility, the patient declares balance related limitation. 8. Recent travel, recent treatment as high-altitude pulmonary edema per the patient. 9. Hypertension. 10. Diabetes. 11. Medication list including dopaminergic agent. 12. Multiple lung nodules, possible residual high-altitude pulmonary edema pneumonitis possible pneumonia, possible other. Continue antibiotics PT mobilization, assess spine and functionality 2 view CXR noted, some kyphosis element supported --needs outpatient pulmonary function testing to assess the functional restriction Needs follow up of the CAT scan pneumonitis/nodules, followup until clearance. Treat as possible asthma and treat her definite history of allergies. Wean off oxygen if feasible . check progress with PT Thank you very much, Dr. Giron, for this consult. Please call for questions.
--- NOTE | 2019-06-23 19:21 | NUR ---
PATIENT IS IN STABLE CONDITION WITH NO S/S OF RESPIRATORY DISTRESS. NO PAIN VOICED. 02 APPLIED. FAMILY MEMBERS PRESENT IN ROOM. CALL LIGHT IS WITHIN REACH, PATIENT INSTRUCTED TO CALL FOR ASSISTANCE NEEDED. WALKER AVAILABLE NEAR PATIENT'S BEDSIDE. BEDSIDE REPORT GIVEN TO ONCOMING NURSE.
[2019-06-23] MEDS: NYSTATIN 15 GM POWDER UD BTL TOP SCH (21:09)
[2019-06-23] MEDS: CHOLESTYRAMINE 4 GM PACKET PO SCH (21:09)
[2019-06-23] MEDS: SERTRALINE HCL 50 MG TAB PO SCH (22:23)
[2019-06-23] MEDS: CEFTRIAXONE SOD 1 GM/NS 50 ML 50 ML IV SCH (23:23)
[2019-06-24] VITALS (9 sets, daily range): BP systolic 101–131; BP diastolic 50–71
[2019-06-24] MEDS: DOXYCYCLINE 100MG/NS 100ML 100 ML IV SCH ×3 (00:39→22:51)
[2019-06-24] MEDS: ACETAMINOPHEN 325 MG TAB PO PRN (04:51)
--- NOTE | 2019-06-24 07:05 | NUR ---
PATIENT IS AWAKE AND IN STABLE CONDITION WITH NO S/S OF RESPIRATORY DISTRESS. NO PAIN VOICED. 02 APPLIED. WALKER AVAILABLE FOR PATIENT NEAR BEDSIDE. CALL LIGHT IS WITHIN REACH, PATIENT INSTRUCTED TO CALL FOR ASSISTANCE NEEDED.
[2019-06-24] MEDS: INSULIN LISPRO 100 UNIT/1 ML 3ML VIAL SQ SCH ×4 (07:30→21:00)
[2019-06-24] MEDS: MONTELUKAST SODIUM 10 MG TAB PO SCH (08:35)
[2019-06-24] MEDS: CARBIDOPA/LEVODOPA 25/100 TAB PO SCH ×2 (08:35→17:34)
[2019-06-24] MEDS: LISINOPRIL 20 MG TAB PO SCH ×2 (08:36→17:35)
[2019-06-24] MEDS: MAGNESIUM OXIDE 400 MG TAB PO SCH (08:36)
[2019-06-24] MEDS: NYSTATIN 15 GM POWDER UD BTL TOP SCH ×2 (08:36→21:46)
[2019-06-24] MEDS: GLIMEPIRIDE 2 MG TAB PO SCH ×2 (08:36→17:34)
--- NOTE | 2019-06-24 13:40 | NUR ---
Pulmonary Medicine Date: 06/24/19 SUBJECTIVE: 87% saturation on exertion, RA RA fio2 eating well BM REVIEW OF SYSTEMS: no chest pain, no epistaxis OBJECTIVE: VITAL SIGNS: vital signs noted and reviewed per the chart record. GENERAL: NAD, talkative, pleasant HEENT: Normocephalic and atraumatic. NECK: Supple. Throat midline. LUNGS: Bilateral reasonable air entry, no wheezes CARDIAC: S1, S2. No murmurs, rubs, or gallops. ABDOMINAL EXAM: Soft and nontender. EXTREMITIES: No clubbing, no cyanosis. no edema. INTEGUMENT: No rash, no purpura. LABORATORY DATA: no new updates IMPRESSION: 1. Hypoxemia, suspect multifactorial. Highest considerations include possibility of chronic obstructive pulmonary disease (although family states clearly that there is no chronic obstructive pulmonary disease history). Some kyphosis/extrathoracic lung restriction suspected, rule out other disorders. 2. kyphosis NOS. 3. Former smoker, quit long ago. [id number] history. Rule out chronic obstructive pulmonary disease. 4. History of possible bronchoreactive disease, possible asthma. 5. Seasonal allergies. 6. Mild gastroesophageal reflux disease. 7. Baseline debility, the patient declares balance related limitation. 8. Recent travel, recent treatment as high-altitude pulmonary edema per the patient. 9. Hypertension. 10. Diabetes. 11. Medication list including dopaminergic agent. 12. Multiple lung nodules, possible residual high-altitude pulmonary edema pneumonitis possible pneumonia, possible other. Continue antibiotics PT mobilization, assess spine furtherand functionality 2 view CXR noted, some kyphotic element supported --needs outpatient pulmonary function testing to assess the component of functional restriction Needs follow up of the CAT scan pneumonitis/nodules, followup until clearance. Treat as possible asthma and treat her definite history of allergies. Wean off oxygen if feasible. low level indication for home oxygen, but patient wants it. Thank you very much, Dr. Giron, for this consult. Please call for questions.
--- NOTE | 2019-06-24 16:42 | Progress Note ---
DATE: 06/24/2019 Medicine Progress Note SUBJECTIVE: The patient reports feeling much better today with no complaints. She does qualify for her home O2. No overnight events. PHYSICAL EXAMINATION: VITAL SIGNS: Temperature 97.6, pulse is 68, respiratory rate is 20, blood pressure is 120/60, and pulse ox 97% on 3 L nasal cannula. GENERAL: Not in acute distress. Alert and oriented x3. Cooperative on examination. HEENT: Head; normocephalic, atraumatic. Eyes; pupils are equal, round, and reactive to light bilaterally. Extraocular movements intact bilaterally. Throat; no evidence of erythema or exudates in the posterior pharynx. Has poor dentition. NECK: Supple. Good range of motion. PULMONARY: Clear to auscultation bilaterally. No wheezing, no rales, no rhonchi, no crackles appreciated. CARDIOVASCULAR: Positive S1 and S2. No murmurs, rubs, or gallops appreciated. ABDOMEN: Soft, nondistended, and nontender to palpation. Bowel sounds present. MUSCULOSKELETAL: Strength is 5/5 throughout. No evidence of any muscle deficits on examination. No weakness appreciated. NEUROLOGIC: Cranial nerve II through XII grossly intact. No evidence of any neurological deficits on exam. SKIN: Intact. Warm to touch. Good cap refill. PSYCHIATRIC: Normal affect and mood. EXTREMITIES: No edema. Good range of motion throughout. LABORATORY FINDINGS: Show white count is 8.1. CBCs are normal. Chemistries reviewed and stable. MICROBIOLOGY: Blood cultures are negative. IMPRESSION: 1. Hypoxemia secondary to shortness of breath, concerns for underlying chronic obstructive pulmonary disease as well as possible underlying infectious etiology. 2. Hypertension. 3. Type 2 diabetes. 4. History of depression. 5. Morbid obesity. 6. Pulmonary nodules-needs outpatient followup with piece dyer. PLAN: At this time, she continues to be on antibiotics, neb treatments as well. She is improving. She does qualify for home O2, which we are working on getting as well for home. Continue with sliding scale for her underlying diabetes. Blood pressure is controlled. Continue with same regimen. A 2D echo was found to be EF of 56%. No further workup needed. PT and OT daily. Lovenox for DVT prophylaxis. If the patient is able to get oxygen by tomorrow, she can potentially be discharged, if cleared by Pulmonary. MD EMILIA Odonnell/YAIR /[id number]
[2019-06-24] MEDS: ENOXAPARIN SOD INJ 40 MG/0.4 ML SYR SC SCH (17:34)
--- NOTE | 2019-06-24 19:51 | NUR ---
PATIENT IS IN STABLE CONDITION WITH NO S/S OF RESPIRATORY DISTRESS. NO PAIN VOICED. CALL LIGHT IS WITHIN REACH, PATIENT INSTRUCTED TO CALL FOR ASSISTANCE NEEDED. REPORT GIVEN TO ONCOMING NURSE.
[2019-06-24] MEDS: CHOLESTYRAMINE 4 GM PACKET PO SCH (21:45)
[2019-06-24] MEDS: SERTRALINE HCL 50 MG TAB PO SCH (21:45)
[2019-06-24] MEDS: CEFTRIAXONE SOD 1 GM/NS 50 ML 50 ML IV SCH (22:20)
[2019-06-25] VITALS (8 sets, daily range): BP systolic 137–159; BP diastolic 58–72
[2019-06-25] MEDS: ACETAMINOPHEN 325 MG TAB PO PRN ×3 (04:48→19:38)
--- NOTE | 2019-06-25 07:10 | NUR ---
PATIENT IS IN STABLE CONDITION WITH NO S/S OF RESPIRATORY DISTRESS. NO PAIN VOICED. DAUGHTER PRESENT IN ROOM. CALL LIGHT IS WITHIN REACH, PATIENT INSTRUCTED TO CALL FOR ASSISTANCE NEEDED.
[2019-06-25] MEDS: INSULIN LISPRO 100 UNIT/1 ML 3ML VIAL SQ SCH ×4 (07:30→20:48)
[2019-06-25 07:40] LABS: BASOPHILS % 0.3 % (0.0-1.0); EOSINOPHILS # (AUTO) 0.3 (0.0-0.4); EOSINOPHILS % 4.9 % (0.0-6.0); HEMATOCRIT 34.9 % (34.2-44.1); HEMOGLOBIN 11.7 g/dL (12.0-16.0); LYMPHOCYTES % 33.4 % (18.0-39.1); MEAN CORPUSCULAR HGB CONC 33.5 g/dL (31-35); MEAN CORPUSCULAR VOLUME 95.4 fL (81-99); MONOCYTES # (AUTO) 0.4 (0.2-0.8); MONOCYTES % 6.9 % (4.4-11.3); NEUTROPHILS # (AUTO) 3.3 (2.1-6.9); NEUTROPHILS % 54.3 % (38.7-80.0); PLATELET COUNT 197 x10e3/uL (140-360); RED BLOOD COUNT 3.66 x10e6/uL (3.6-5.1); RED CELL DISTRIBUTION WIDTH 11.7 % (11.7-14.4)
[2019-06-25 08:01] LABS: ANION GAP 12.6 mmol/L (8-16); BLOOD UREA NITROGEN 20 mg/dL (7-26); BUN/CREATININE RATIO 31 (6-25); CALCIUM 9.5 mg/dL (8.4-10.2); CARBON DIOXIDE 23 mmol/L (22-29); CHLORIDE 102 mmol/L (98-107); CREATININE, SERUM 0.64 mg/dL (0.57-1.11); EST GLOMERULAR FILTRATION RATE > 60 ML/MIN (60-); GLUCOSE 97 mg/dL (74-118); POTASSIUM 4.6 mmol/L (3.5-5.1); SODIUM 133 mmol/L (136-145)
[2019-06-25] MEDS: MAGNESIUM OXIDE 400 MG TAB PO SCH (08:21)
[2019-06-25] MEDS: GLIMEPIRIDE 2 MG TAB PO SCH ×2 (08:21→17:17)
[2019-06-25] MEDS: CARBIDOPA/LEVODOPA 25/100 TAB PO SCH ×2 (08:22→17:16)
[2019-06-25] MEDS: MONTELUKAST SODIUM 10 MG TAB PO SCH (08:22)
[2019-06-25] MEDS: LISINOPRIL 20 MG TAB PO SCH ×2 (08:22→17:17)
[2019-06-25] MEDS: NYSTATIN 15 GM POWDER UD BTL TOP SCH ×2 (08:22→20:49)
[2019-06-25] MEDS: DOXYCYCLINE 100MG/NS 100ML 100 ML IV SCH (11:04)
--- NOTE | 2019-06-25 11:30 | NUR ---
IV INFILTRATED- PATIENT REFUSED FOR A NEW IV.
--- NOTE | 2019-06-25 12:56 | NUR ---
DR. FULLER ON THE UNIT- DR. FULLER AWARE OF PATIENT'S REFUSAL FOR A NEW IV. NEW ORDERS RECEIVED.
--- NOTE | 2019-06-25 13:47 | NUR ---
Pt can go home if home oxygen can be arranged. JOSSIE notified Roddy with [facility]. He stated he should be able to provide. Clinicals and orders faxed to [facility]. Notified Marie LINARES, pt nurse and also Dr. Mack Beverly office [phone] fax [phone] Roddy (liaison) cell [phone]
--- NOTE | 2019-06-25 15:42 | Discharge Summary ---
FINAL DISCHARGE DIAGNOSES: 1. Hypoxia, likely secondary to chronic obstructive pulmonary disease as well as possible underlying infectious etiology. 2. Hypertension. 3. Type 2 diabetes. 4. History of depression. 5. Morbid obesity. 6. Pulmonary nodules-needs outpatient followup with section gang worker. 7. Thyroid nodule, needs outpatient followup with her PCP with referral to Endocrinology. This was discussed with the patient. She verbalized understanding. CONSULTANTS: Pulmonary. PHYSICAL EXAMINATION: VITAL SIGNS: Temperature is 96, pulse 78, respiratory rate is 21, blood pressure 154/72, and pulse ox 95% on 3 L nasal cannula. LABORATORY FINDINGS: Show white count 6, hemoglobin 11.7, hematocrit is 35, and platelets of 197. Chemistry; sodium 133, potassium 4.6, chloride 102, bicarbonate 23, anion gap of 10, BUN is 20, creatinine is 0.64, glucose 97, calcium 9.5. Hemoglobin A1c was 8.1. Total bilirubin is 0.6, AST 9, ALT 8, alkaline phosphatase is 98. CK is 31. Troponins were all negative. Total protein 7.4, albumin was 3.7. Urinalysis was negative. MICROBIOLOGY: Blood cultures were negative. IMAGING STUDIES: CT chest PE protocol shows no pulmonary embolism. There is some right apical ground-glass nodule measures 12 mm. Left lower lobe solid 4 mm pulmonary nodule. Needs a repeat imaging as an outpatient. She does have underlying 2 x 1.9 cm hypodense posterior right thyroid lobe nodule and needs outpatient followup. I did discuss this with the patient at bedside and she verbalized understanding to follow up with her PCP. Also has some cholelithiasis and atherosclerotic arterial calcifications seen. Chest x-ray unremarkable. Portable chest x-ray, repeat chest x-ray again shows some haziness in the inferior left heart border, possibly due to atelectasis, mediastinal fat or airspace disease such as pneumonia. HOSPITAL COURSE: This is a 79-year-old female, who came into the emergency room with underlying hypoxia, states that she is very short of breath on examination, has been like this for significant period of time. The patient reports that she was a chronic smoker for significant number of years and she was on home O2, but then apparently she was taking off oxygen. The patient was admitted and Pulmonary was consulted. CTA of the chest shows no evidence of pulmonary embolism, but there was some evidence of some ground-glass opacities. As per Pulmonary, they recommended treating with antibiotics IV and then discharged on oral antibiotics, doxycycline and Levaquin. She will follow up very close with Pulmonary as an outpatient. Her CTA PE protocol was negative for pulmonary embolism. She did qualify for home O2, which was arranged for her for home. She also used neb treatments when she was in the hospital and improved tremendously while in the hospital stay. She was ambulating with minimal shortness of breath and back to normal baseline prior to being discharged. As for her blood pressure and diabetes, it was well managed and controlled. A 2D echo shows an EF of 56%, but no further cardiac workup was needed. She also was found to have some pulmonary nodules, in which she needs to follow up with section gang worker very closely as an outpatient. She was also found to have some thyroid nodules and I also advised the patient to follow up with her PCP with referral to Endocrinology. Otherwise, the patient was doing well with no other complaints. She verbalized understanding. On the day of discharge, vital signs were stable, labs reviewed and stable. The patient is seen and evaluated, examined thoroughly on the day of discharge. No other complaints. The patient verbalized understanding and agrees to plan of care to follow up as an outpatient with the PCP in 1 week and the section gang worker in 1 to 2 weeks' time. MEDICATIONS: See med reconciliation form. 1. Lisinopril 20 mg p.o. b.i.d. changed. 2. Doxycycline 100 mg p.o. b.i.d. x10 days. 3. Levaquin 500 mg daily x7 days. DISPOSITION: To home. CONDITION: Stable. DIET: Heart healthy. In the event of any worsening symptoms, the patient advised to come back to the emergency room for further evaluation. Discharge summary took greater than 35 minutes. MD EMILIA Odonnell/YAIR /[id number]
--- NOTE | 2019-06-25 15:47 | NUR ---
Pulmonary Medicine Date: 06/25/19 SUBJECTIVE: on oxygen by NC no respiratory distress now eating ok REVIEW OF SYSTEMS: no chest pain, no epistaxis OBJECTIVE: VITAL SIGNS: vital signs noted and reviewed per the chart record. GENERAL: NAD, talkative, pleasant HEENT: Normocephalic and atraumatic. NECK: Supple. Throat midline. LUNGS: Bilateral reasonable air entry, no wheezes CARDIAC: S1, S2. No murmurs, rubs, or gallops. ABDOMINAL EXAM: Soft and nontender. EXTREMITIES: No clubbing, no cyanosis. no edema. INTEGUMENT: No rash, no purpura. LABORATORY DATA: no new updates IMPRESSION: 1. Hypoxemia, suspect multifactorial. Highest considerations include possibility of chronic obstructive pulmonary disease (although family states clearly that there is no chronic obstructive pulmonary disease history). Some kyphosis/extrathoracic lung restriction suspected, rule out other disorders. 2. kyphosis NOS. 3. Former smoker, quit long ago. [id number] history. Rule out chronic obstructive pulmonary disease. 4. History of possible bronchoreactive disease, possible asthma. 5. Seasonal allergies. 6. Mild gastroesophageal reflux disease. 7. Baseline debility, the patient declares balance related limitation. 8. Recent travel, recent treatment as high-altitude pulmonary edema per the patient. 9. Hypertension. 10. Diabetes. 11. Medication list including dopaminergic agent. 12. Multiple lung nodules, possible residual high-altitude pulmonary edema pneumonitis possible pneumonia, possible other. Continue antibiotics PT mobilization, assess spine furtherand functionality 2 view CXR noted, some kyphotic element supported --needs outpatient pulmonary function testing to assess the component of functional restriction Needs follow up of the CAT scan pneumonitis/nodules, followup until clearance. Treat as possible asthma and treat her definite history of allergies. low level but true indication for home oxygen. ordered. Thank you very much, Dr. Giron, for this consult. Please call for questions.
[2019-06-25] MEDS: ENOXAPARIN SOD INJ 40 MG/0.4 ML SYR SC SCH (17:16)
[2019-06-25] MEDS: DOXYCYCLINE HYCLATE TABLET 100 MG TAB PO SCH (17:16)
--- NOTE | 2019-06-25 19:13 | NUR ---
PATIENT IS IN STABLE CONDITION WITH NO S/S OF RESPIRATORY DISTRESS. NO PAIN VOICED. 02 APPLIED. CALL LIGHT IS WITHIN REACH, PATIENT INSTRUCTED TO CALL FOR ASSISTANCE NEEDED. BEDSIDE REPORT GIVEN TO ONCOMING NURSE.
--- NOTE | 2019-06-25 19:28 | NUR ---
PT IS RESTING IN BED WITH FAMILY AT BEDSIDE. RESPIRATION IS EVEN AND UNLABORED, NO DISTRESS NOTED. BED IN THE LOWEST POSITION, LOCKED, BED ALARM ON, AND CALL LIGHT WITHIN REACH. WILL CONTINUE TO MONITOR.
[2019-06-25] MEDS: SERTRALINE HCL 50 MG TAB PO SCH (20:48)
[2019-06-25] MEDS: CHOLESTYRAMINE 4 GM PACKET PO SCH (20:48)
[2019-06-26 03:40] VITALS: BP 147/67
[2019-06-26 06:20] LABS: BASOPHILS % 0.4 % (0.0-1.0); EOSINOPHILS # (AUTO) 0.3 (0.0-0.4); EOSINOPHILS % 5.6 % (0.0-6.0); HEMATOCRIT 34.3 % (34.2-44.1); HEMOGLOBIN 11.5 g/dL (12.0-16.0); LYMPHOCYTES % 35.9 % (18.0-39.1); MEAN CORPUSCULAR HEMOGLOBIN 31.9 pg (28-32); MEAN CORPUSCULAR HGB CONC 33.5 g/dL (31-35); MONOCYTES # (AUTO) 0.4 (0.2-0.8); MONOCYTES % 6.9 % (4.4-11.3); NEUTROPHILS # (AUTO) 2.8 (2.1-6.9); NEUTROPHILS % 50.8 % (38.7-80.0); PLATELET COUNT 180 x10e3/uL (140-360); RED BLOOD COUNT 3.61 x10e6/uL (3.6-5.1); RED CELL DISTRIBUTION WIDTH 11.4 % (11.7-14.4)
[2019-06-26 06:42] LABS: ANION GAP 10.4 mmol/L (8-16); BLOOD UREA NITROGEN 17 mg/dL (7-26); BUN/CREATININE RATIO 24 (6-25); CALCIUM 9.4 mg/dL (8.4-10.2); CARBON DIOXIDE 24 mmol/L (22-29); CHLORIDE 99 mmol/L (98-107); EST GLOMERULAR FILTRATION RATE > 60 ML/MIN (60-); GLUCOSE 101 mg/dL (74-118); POTASSIUM 4.4 mmol/L (3.5-5.1); SODIUM 129 mmol/L (136-145)
[2019-06-26] MEDS: INSULIN LISPRO 100 UNIT/1 ML 3ML VIAL SQ SCH ×2 (07:30→12:54)
[2019-06-26 08:00] VITALS: BP 180/78
[2019-06-26 08:09] VITALS: BP 180/78
[2019-06-26] MEDS: MAGNESIUM OXIDE 400 MG TAB PO SCH (08:33)
[2019-06-26] MEDS: GLIMEPIRIDE 2 MG TAB PO SCH (08:33)
[2019-06-26] MEDS: DOXYCYCLINE HYCLATE TABLET 100 MG TAB PO SCH (08:34)
[2019-06-26] MEDS: MONTELUKAST SODIUM 10 MG TAB PO SCH (08:34)
[2019-06-26] MEDS: LISINOPRIL 20 MG TAB PO SCH (08:34)
[2019-06-26] MEDS: NYSTATIN 15 GM POWDER UD BTL TOP SCH (08:34)
[2019-06-26] MEDS: CARBIDOPA/LEVODOPA 25/100 TAB PO SCH (08:34)
[2019-06-26] MEDS ORDERED: LEVOFLOXACIN 500 MG TAB PO SCH (09:00)
[2019-06-26 11:27] VITALS: BP 138/62
--- NOTE | 2019-06-26 12:51 | Progress Note ---
DATE: 06/26/2019 Medicine Progress Note SUBJECTIVE: The patient was supposed to be discharged yesterday, but apparently oxygen was not arranged. A discharge summary was performed. Her med reconciliation form was performed as well. Otherwise, overnight, the patient is doing well with no other complaints. She has been afebrile, normotensive with no other complaints at this time. Her blood pressure was slightly elevated this morning, but was given antihypertensive medications with much improvement. PHYSICAL EXAMINATION: VITAL SIGNS: Temperature is 97.1, pulse is 72, respiratory rate is 20, blood pressure 130/62, 96% on nasal cannula 3 L. GENERAL: Not in acute distress. Alert and oriented x3. Cooperative on examination. HEENT: Head; normocephalic, atraumatic. Eyes; pupils are equal, round, and reactive to light bilaterally. Extraocular movements are intact bilaterally. Throat; no evidence of erythema or exudates in the posterior pharynx. Has poor dentition. NECK: Supple. Good range of motion. PULMONARY: Clear to auscultation bilaterally. No wheezing, no rales, no rhonchi, no crackles appreciated. CARDIOVASCULAR: Positive S1 and S2. No murmurs, rubs, or gallops appreciated. ABDOMEN: Soft, nondistended, and nontender to palpation. Bowel sounds present. MUSCULOSKELETAL: Strength is 5/5 throughout. No evidence of any muscle deficits on examination. No weakness appreciated. NEUROLOGIC: Cranial nerve 2 through 12 grossly intact. No evidence of any neurological deficits on exam. SKIN: Intact. Warm to touch. Good cap refill. PSYCHIATRIC: Normal affect and mood. EXTREMITIES: No edema. Good range of motion throughout. LABORATORY DATA: Laboratory findings show white count is 5.5, hemoglobin 11.5, hematocrit 34, platelets of 180. Chemistry; sodium was 129, potassium 4.4, chloride 99, bicarb 24, anion gap of 10, BUN is 17, creatinine is 0.7, glucose is 101, calcium is 9.4. MICROBIOLOGY: Blood cultures were negative. IMPRESSION: 1. Hypoxemia secondary to shortness of breath with underlying chronic obstructive pulmonary disease as well as underlying infectious etiology. 2. Hypertension. 3. Type 2 diabetes. 4. History of depression. 5. Morbid obesity. 6. Pulmonary nodules, needs outpatient followup with manager marketing sales. PLAN: At this time, she will continue with antibiotics and neb treatments. She was supposed to be discharged yesterday, but apparently the oxygen was not arranged by Case Management. Hopefully, the oxygen gets arranged today. Her med reconciliation form has been performed since yesterday. A 2D echo shows an EF of 56%. No further workup needed by Pulmonary. She is on Lovenox for DVT prophylaxis. Once the oxygen is arranged, she is stable to discharge to home. MD EMILIA Odonnell/YAIR /[id number]
[2019-06-26 15:31] VITALS: BP 149/65
[2019-06-26] MEDS ORDERED: LISINOPRIL10 MG PO (15:46)
[2019-06-26] MEDS ORDERED: DOXYCYCLINE HY100 M3 PO (15:47)
[2019-06-26] MEDS ORDERED: LEVAQUIN500 MG PO (15:47)
--- NOTE | 2019-06-26 17:00 | NUR ---
Pt discharged at this time. Pt and family verbalized understanding of all discharge instructions. Pt went home with oxygen, two e-tanks were delivered by [facility].
--- NOTE | 2019-06-27 00:06 | NUR ---
Pulmonary Medicine Date: 06/26/19 SUBJECTIVE: on oxygen by [place] steady progress ' REVIEW OF SYSTEMS: no chest pain, no epistaxis OBJECTIVE: VITAL SIGNS: vital signs noted and reviewed per the chart record. GENERAL: NAD, talkative, pleasant HEENT: Normocephalic and atraumatic. NECK: Supple. Throat midline. LUNGS: Bilateral reasonable air entry, no wheezes CARDIAC: S1, S2. No murmurs, rubs, or gallops. ABDOMINAL EXAM: Soft and nontender. EXTREMITIES: No clubbing, no cyanosis. no edema. INTEGUMENT: No rash, no purpura. LABORATORY DATA: no new updates IMPRESSION: 1. Hypoxemia, suspect multifactorial. Highest considerations include possibility of chronic obstructive pulmonary disease (although family states clearly that there is no chronic obstructive pulmonary disease history). Some kyphosis/extrathoracic lung restriction suspected, rule out other disorders. 2. kyphosis NOS. 3. Former smoker, quit long ago. [id number] history. Rule out chronic obstructive pulmonary disease. 4. History of possible bronchoreactive disease, possible asthma. 5. Seasonal allergies. 6. Mild gastroesophageal reflux disease. 7. Baseline debility, the patient declares balance related limitation. 8. Recent travel, recent treatment as high-altitude pulmonary edema per the patient. 9. Hypertension. 10. Diabetes. 11. Medication list including dopaminergic agent. 12. Multiple lung nodules, possible residual high-altitude pulmonary edema pneumonitis possible pneumonia, possible other. Continue antibiotics PT mobilization, assess spine furtherand functionality 2 view CXR noted, some kyphotic element supported --needs outpatient pulmonary function testing to assess the component of functional restriction Needs follow up of the CAT scan pneumonitis/nodules, followup until clearance. Treat as possible asthma and treat her definite history of allergies. low level but true indication for home oxygen. delivered discharge today Thank you very much, Dr. Giron, for this consult. Please call for questions.
--- NOTE | 2019-06-28 11:00 | Discharge Summary ---
FINAL DISCHARGE DIAGNOSES: 1. Hypoxia secondary to chronic obstructive pulmonary disease as well as underlying infectious etiology. 2. Hypertension. 3. Type 2 diabetes. 4. History of depression. 5. Morbid obesity. 6. Pulmonary nodules-needs outpatient followup with billing collections specialist. 7. Thyroid nodule. Needs outpatient followup with PCP with referral to Endocrinology. This was discussed with the patient. She verbalized understanding. Follow up closely. CONSULTANTS: Pulmonary. PHYSICAL EXAMINATION: VITAL SIGNS: Temperature is 96.9, pulse 75, respiratory rate is 20, blood pressure 149/65, pulse ox 97% on 2 L nasal cannula. LABORATORY FINDINGS: Show white count is 5.5, hemoglobin is 11.5, hematocrit is 34, platelets of 180. Chemistry; sodium 129, potassium 4.4, chloride 99, bicarb 24, anion gap of 10, BUN 17, creatinine is 0.7, glucose is 101, calcium is 9.4. Troponins were all negative. LFTs within normal range. Albumin is 3.7. Urinalysis negative. MICROBIOLOGY: Blood cultures were negative. IMAGING STUDIES: CT chest PE protocol shows no pulmonary embolism. There is some right apical ground-glass nodule measuring 12 mm. Left lower lobe solid 4 mm pulmonary nodule. Needs a repeat imaging as an outpatient. She does have an underlying 2 x 1.9 cm hypodense posterior right thyroid lobe nodule and needs outpatient followup. I did discuss this with the patient at bedside and she verbalized understanding to follow up with PCP. Also, she has some cholelithiasis and atherosclerotic arterial calcifications seen. Chest x-ray is unremarkable. Portable chest x-ray, repeat chest x-ray again shows some haziness in the inferior left heart border. Possibly due to atelectasis. Mediastinal fat or airspace disease such as pneumonia. HOSPITAL COURSE: A 79-year-old female, who came into the emergency room with underlying hypoxia, states that she is very short of breath on examination, has been like this for a significant period of time. The patient reports that she was a chronic smoker for significant number of years and she was on home O2 but then apparently, she was taken off oxygen by her PCP. The patient was admitted and Pulmonary was consulted. CT of the chest shows no evidence of pulmonary embolism, but there was some evidence of some ground-glass opacity. As per Pulmonary, they recommended treating with antibiotics IV and then discharge on oral antibiotics with doxycycline and Levaquin. She will follow up very close with Pulmonary as an outpatient. Her CTA PE protocol was negative for PE. She did qualify for home O2, which was arranged for her home. She also used neb treatments when she was in the hospital and improved tremendously while in the hospital stay. The patient was ambulating with minimal shortness of breath and back to normal baseline prior to being discharged home. As for her blood pressure and diabetes, it was well managed and controlled. A 2D echo showed EF of 56%. No further cardiac workup was needed. She was also found to have some pulmonary nodules, in which she needs to follow with the billing collections specialist very closely as an outpatient. She also was found to have some thyroid nodules, which I also advised the patient to follow with her PCP with referral to Endocrinology for further management and care. Otherwise, the patient was doing well with no other complaints. She was verbalized understanding. On the day of discharge, vital signs were stable, labs reviewed and stable. The patient is seen and evaluated, examined thoroughly on the day of discharge. No other complaints. The patient verbalized understanding and agrees to plan of care to follow up as an outpatient with the PCP in 1 week and billing collections specialist in 1 to 2 weeks' time. Does need Endocrinology outpatient followup as well. MEDICATIONS: See med reconciliation form includin. Lisinopril 20 mg p.o. b.i.d. 2. Doxycycline 100 mg p.o. b.i.d. x10 days. 3. Levaquin 500 mg p.o. daily x7 days. DISPOSITION: To home. CONDITION: Stable. DIET: Heart healthy. In the event of any worsening symptoms, the patient was advised to come back to the ED for further evaluation. Discharge summary took greater than 35 minutes. MD EMILIA Odonnell/YAIR /[id number]
== END 2019-06-26 16:57 | disposition home or self-care (01) | DRG 189 ==
LOC: ER 10:32 → EDBD 10:32 → ERHOLD 14:38 → MED/SURG 17:01 → MED/SURG3 06-22 14:10
PROVIDERS: ADMIT Internal Medicine; ATTEND Internal Medicine
DX: J96.01 Acute respiratory failure with hypoxia (principal); J18.9 Pneumonia, unspecified organism; J44.0 Chronic obstructive pulmonary disease with (acute) lower respiratory infection; J44.1 Chronic obstructive pulmonary disease with (acute) exacerbation; I10 Essential (primary) hypertension; E11.9 Type 2 diabetes mellitus without complications; Z68.30 Body mass index [BMI] 30.0-30.9, adult; Z99.81 Dependence on supplemental oxygen; E66.01 Morbid (severe) obesity due to excess calories; R91.8 Other nonspecific abnormal finding of lung field; E04.1 Nontoxic single thyroid nodule
CPT/HCPCS: 36415; 71045; 71046; 71260; 80048; 80053; 81001; 82550; 82553; 82948; 83036; 83605; 83880; 84484; 85025; 87040; 93005; 93306; 94640; 99284; J0360; J0696; J1650; J2930; J7050; Q9967

== ENCOUNTER 2020-05-25 19:05 | Emergency (ER) | payer SELFPAY ==
[~2020-05-25] VITALS: Ht 157.5 cm; Wt 76.2 kg
[~2020-05-25 19:05] MED LIST: DOXYCYCLINE HY100 M3 PO; GLIMEPIRIDE2 MG PO; LEVAQUIN500 MG PO; LISINOPRIL10 MG PO; MAGNESIUM OXID400 MG PO; METFORMIN HCL500 MG PO; MONTELUKAST SOD10 MG PO; POTASSIUM CHLO10 ME1 PO; QUESTRAN PACKET4 GM PO; SINEMET 25-1001 EACH PO; VENTOLIN HFA18 GM INH; ZOLOFT50 MG PO
--- NOTE | 2020-05-25 20:35 | Diagnostic Imaging Report ---
KNEE RIGHT THREE VIEWS - 3 views HISTORY: Pain COMPARISON: None available. FINDINGS: Bones: No acute displaced fracture. Osseous alignment is within normal limits. Joints: Mild scattered degenerative changes. Soft tissues: Vascular calcifications. IMPRESSION: No acute fracture or dislocation of the right knee. Signed by: Dr. Kunal Oglesby MD on 05/25/2020 8:32 PM
--- NOTE | 2020-05-25 20:35 | Diagnostic Imaging Report ---
EXAMINATION: Head CT without contrast. HISTORY:Trauma, fall. COMPARISON:None. TECHNIQUE: Multidetector axial images were obtained from the foramen magnum to the vertex without contrast. The images were reconstructed using brain and bone algorithms. Thin section brain images were reformatted into coronal and sagittal planes. Dose modulation, iterative reconstruction, and/or weight based adjustment of the mA/kV was utilized to reduce the radiation dose to as low as reasonably achievable. Intravenous contrast: None IMAGE QUALITY: Acceptable. FINDINGS: Skull/scalp: No lytic or blastic. lesions. No surgical changes. Parenchyma: Nonspecific bilateral frontoparietal patchy white matter hypodensity are likely related to small vessel ischemic changes. Focal hypodensity in the anterior limb of right internal capsule represents chronic lacunar infarct. No acute hemorrhage, mass or acute major vascular territorial infarct. Arteries: No density suggestive of thrombosis. Mild atherosclerotic calcification in bilateral carotid siphon. Dural sinuses: No abnormal density suggestive of thrombosis. Ventricles: Mild compensated dilatation due to volume loss. No hydrocephalus. Extra-axial spaces: No abnormal density. Brain volume: Generalized age-related cerebral volume loss. Craniocervical junction: No mass, Chiari malformation, or basilar invagination. Sella: No mass. Paranasal/mastoid sinuses: Imaged portions unremarkable. IMPRESSION: No acute intracranial abnormality. Mild supratentorial white matter microvascular ischemic changes. Chronic lacunar infarct in the anterior limb of right internal capsule. Generalized age-related cerebral volume loss. Signed by: Dr. Jennifer Garay M.D. on 05/25/2020 8:31 PM
--- NOTE | 2020-05-25 20:44 | Diagnostic Imaging Report ---
History: Trauma, fall. Comparison studies: None Technique: Axial images were obtained through the cervical region.. Coronal and sagittal images reconstructed from the axial data. Dose modulation, iterative reconstruction, and/or weight based adjustment of the mA/kV was utilized to reduce the radiation dose to as low as reasonably achievable. Intravenous contrast: None Findings: Fractures: None. Soft tissue injuries: None. Atlantoaxial articulation: Intact. Alignment: Normal lordosis. No scoliosis. 2.7 mm grade 1 anterolisthesis at level C7-T1, likely degenerative. Cervicomedullary junction: No abnormalities. The foramen magnum is patent. Soft tissues: Nonspecific 1.8 cm calcified lesion inferior and posterior to the left lobe of thyroid gland, is partially visualized may represent a calcified lymph node. Multiple hypodense nodules within the thyroid gland, largest in right lobe measures approximately 1.3 cm in maximum craniocaudad dimension. 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 No fractures, infection or neoplasm. Degenerative changes: Advanced degenerative changes in the anterior atlantodental joint. C3-C4: Mild left foraminal stenosis due to facet and uncovertebral arthrosis. C4-C5: Mild left foraminal stenosis due to facet and uncovertebral arthrosis. C5-C6: Moderate degenerative disc disease. Mild bilateral foraminal stenosis due to facet and uncovertebral arthrosis. C6-C7: Moderate degenerative disc disease. C7-T1: Moderate bilateral foraminal stenosis due to facet and uncovertebral arthrosis. IMPRESSION: 1. No acute cervical spine fracture or dislocation. 2. Ligament, spinal cord and or vascular abnormalities cannot be excluded on the basis of this examination. 3. Multilevel cervical spondylosis as detailed above. 4. Incidental nonspecific 1.8 cm calcified lesion inferior and posterior to left lobe of thyroid gland is partially visualized. This can be further evaluated with dedicated nonemergent ultrasonogram, if previous workup has not been done. Signed by: Dr. Jennifer Garay M.D. on 05/25/2020 8:41 PM
--- NOTE | 2020-05-25 20:48 | Diagnostic Imaging Report ---
History:Trauma, fall. Comparison studies: None Technique: Axial images were obtained through the maxillofacial region. Coronal and sagittal images reconstructed from the axial data. Dose modulation, iterative reconstruction, and/or weight based adjustment of the mA/kV was utilized to reduce the radiation dose to as low as reasonably achievable. Intravenous contrast: None Findings: Soft tissues: Nonspecific multiple superficial, punctate radiopaque densities in the frontal scalp and supraorbital soft tissues may represent debris or foreign body. Mild perinasal subcutaneous soft tissue edema/hematoma. No soft tissue emphysema. Bones: Acute displaced fracture of bilateral nasal bones and perpendicular plate of ethmoid. Orbits: Globes: Intact Extra or intraconal abnormalities: None. Paranasal sinuses: Clear Incidental finding: Multiple missing teeth. IMPRESSION: 1. Acute displaced fracture of bilateral nasal bones and perpendicular plate of ethmoid. 2. Mild perinasal soft tissue edema/hematoma. Signed by: Dr. Jennifer Garay M.D. on 05/25/2020 8:45 PM
[2020-05-25 21:41] VITALS: BP 125/42
--- NOTE | 2020-05-25 22:22 | Emergency Department Note ---
History of Present Illnes History of Present Illness Chief Complaint: Head/Face Trauma History of Present Illness This is a 80 year old female arrived to the ED after a mechanical fall- pt is accustomed to multiple falls. 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 Any updates have been documented here. Past Medical History Recent Fever: No Clinical Suspicion of Infectio: No New/Unexplained Change in Ment: No Past Medical History: Hypertension, Diabetes, Kidney Stones, UTI's, Anemia, Anxiety, Depression, Osteoarthritis Past Surgical History: Cholecysctectomy, Appendectomy, Social History Smoking Cessation: Former smoker Counseling Performed: No Alcohol Use: None Any Illegal Drug Use: No Physically hurt or threatened: No Other Last Tetanus: UNKNOWN Any Pre-Existing Lines (PICC,: No Review of Systems Review of Systems Constitutional: Reports no symptoms EENTM: Reports no symptoms Cardiovascular: Reports no symptoms Respiratory: Reports no symptoms Gastrointestinal: Reports no symptoms Genitourinary: Reports no symptoms Musculoskeletal: Reports as per HPI Integumentary: Reports no symptoms Neurological: Reports no symptoms Psychological: Reports no symptoms Endocrine: Reports no symptoms Hematological/Lymphatic: Reports no symptoms Physical Exam Related Data Allergies: Coded Allergies: No Known Allergies (Unverified , 06/21/19) Triage Vital Signs Vital Signs Date Time Temp Pulse Resp B/P (MAP) Pulse Ox O2 Delivery O2 Flow Rate FiO2 05/25/20 19:13 98.6 89 20 134/58 98 Room Air Vital signs reviewed: Yes Physical Exam CONSTITUTIONAL Constitutional: Present well-developed, Present well-nourished HENT HENT: Present normocephalic, Present atraumatic, Present oropharynx clear/moist, Present nose normal HENT L/R: Present left ext ear normal, Present right ext ear normal EYES Eyes: Reports PERRL, Reports conjunctivae normal NECK Neck: Present ROM normal PULMONARY Pulmonary: Present effort normal, Present breath sounds normal CARDIOVASCULAR Cardiovascular: Present regular rhythm, Present heart sounds normal, Present capillary refill normal, Present normal rate GASTROINTESTINAL Abdominal: Present soft, Present nontender, Present bowel sounds normal GENITOURINARY Genitourinary: Present exam deferred SKIN Skin: Present warm, Present dry MUSCULOSKELETAL Musculoskeletal: Present ROM normal NEUROLOGICAL Neurological: Present alert, Present oriented x 3, Present no gross motor or sensory deficits PSYCHOLOGICAL Psychological: Present mood/affect normal, Present judgement normal Results Imaging Imaging results reviewed: Yes Impressions IMPRESSION: No acute intracranial abnormality. Mild supratentorial white matter microvascular ischemic changes. Chronic lacunar infarct in the anterior limb of right internal capsule. Generalized age-related cerebral volume loss. Signed by: Dr. Jennifer Garay M.D. on 05/25/2020 8:31 PM IMPRESSION: 1. No acute cervical spine fracture or dislocation. 2. Ligament, spinal cord and or vascular abnormalities cannot be excluded on the basis of this examination. 3. Multilevel cervical spondylosis as detailed above. 4. Incidental nonspecific 1.8 cm calcified lesion inferior and posterior to left lobe of thyroid gland is partially visualized. This can be further evaluated with dedicated nonemergent ultrasonogram, if previous workup has not been done. Signed by: Dr. Jennifer Garay M.D. on 05/25/2020 8:41 PM Assessment & Plan Medical Decision Making MDM 80 F arrived to the ED after sustaining a mechanical fall. Pt with small superficial abrasion over eyebrow. Images unremarkable, pt is AAOX3- stable for D/C home. Assessment & Plan Final Impression: (1) Closed head injury Depart Disposition: HOME, SELF-CARE Last Vital Signs Date Time Temp Pulse Resp B/P (MAP) Pulse Ox O2 Delivery O2 Flow Rate FiO2 05/25/20 21:41 86 21 99 05/25/20 19:22 134/58 Room Air 05/25/20 19:13 98.6 Home Meds Reported Medications Levofloxacin (LEVAQUIN) 500 Mg Tablet, 500 MG PO DAILY for 7 Days, TAB 06/26/19 Doxycycline Hyclate (DOXYCYCLINE HYCLATE) 100 Mg Tablet, MG PO BID for 10 Days 06/26/19 Lisinopril (LISINOPRIL) 10 Mg Tablet, 20 MG PO BID, #30 TAB 06/26/19 Cholestyramine (With Sugar) (QUESTRAN PACKET) 4 Gm Packet, 4 GM PO HS, PACKET 06/21/19 Albuterol Sulfate (VENTOLIN HFA) 18 Gm Hfa.aer.ad, 90 MCG INH 06/21/19 Potassium Chloride (POTASSIUM CHLORIDE) 10 Meq Tab.er.prt, 10 MEQ PO BID, TAB 06/21/19 Montelukast Sodium (MONTELUKAST SODIUM) 10 Mg Tablet, 10 MG PO DAILY, #30 TAB 06/21/19 Metformin Hcl (METFORMIN HCL) 500 Mg Tablet, 500 MG PO DAILY, #60 TAB 06/21/19 Sertraline Hcl (ZOLOFT) 50 Mg Tablet, 50 MG PO HS, #30 TAB 06/21/19 Magnesium Oxide (MAGNESIUM OXIDE) 400 Mg Tablet, 400 MG PO DAILY, TAB 06/21/19 Glimepiride (GLIMEPIRIDE) 2 Mg Tablet, 4 MG PO BID, TAB 06/21/19 Carbidopa/Levodopa (SINEMET 25-100 MG TABLET) 1 Each Tablet, 1 EACH PO BID, #30 TAB 06/21/19 ROLLY OROURKE, May 25, 2020 22:21
== END 2020-05-25 22:15 | disposition home or self-care (01) ==
LOC: ER 19:30
DX: S00.83XA Contusion of other part of head, initial encounter (principal); S00.219A Abrasion of unspecified eyelid and periocular area, initial encounter; W01.0XXA Fall on same level from slipping, tripping and stumbling without subsequent striking against object, initial encounter; Y93.01 Activity, walking, marching and hiking; Y92.008 Other place in unspecified non-institutional (private) residence as the place of occurrence of the external cause; G20 Parkinson's disease; I10 Essential (primary) hypertension; E11.9 Type 2 diabetes mellitus without complications; F41.9 Anxiety disorder, unspecified
CPT/HCPCS: 70450; 70486; 72125; 93005; 99284

== ENCOUNTER 2020-12-23 10:17 | Inpatient (IN) | payer MEDICARE ==
[~2020-12-23] VITALS: Ht 157.5 cm; Wt 76.2 kg
[2020-12-23] MEDS ORDERED: ASPIRIN 81 MG CHEW TAB PO ONE ×2 (10:30→14:15)
[2020-12-23 12:06] LABS: COLOR,URINE YELLOW (YELLOW)
[2020-12-23 12:07] LABS: CLARITY,URINE SL CLOUDY (CLEAR); KETONES,URINE 1+ (NEGATIVE); LEUKOCYTE ESTERASE ,URINE MODERATE (NEGATIVE); NITRITE,URINE POSITIVE (NEGATIVE); PROTEIN,URINE DIPSTICK TRACE (NEGATIVE); URINE UROBILINOGEN 0.2 mg/dL (0.2 - 1)
[2020-12-23 12:20] LABS: BACTERIA,URINE MANY /HPF; EPITHELIAL CELLS,URINE MODERATE /LPF; RBC,URINE 0-5 /HPF (0-5); WBC,URINE (MAN) >50 /HPF (0-5)
[2020-12-23 13:09] LABS: BASOPHILS % 0.2 % (0.0-1.0); HEMOGLOBIN 13.5 g/dL (12.0-16.0); LYMPHOCYTES # (AUTO) 1.3 (1.0-3.2); LYMPHOCYTES % 9.6 % (18.0-39.1); MEAN CORPUSCULAR HEMOGLOBIN 31.6 pg (28-32); MEAN CORPUSCULAR HGB CONC 34.6 g/dL (31-35); MEAN CORPUSCULAR VOLUME 91.3 fL (81-99); MONOCYTES # (AUTO) 0.9 (0.2-0.8); MONOCYTES % 6.5 % (4.4-11.3); NEUTROPHILS # (AUTO) 10.9 (2.1-6.9); NEUTROPHILS % 83.2 % (38.7-80.0); PLATELET COUNT 200 x10e3/uL (140-360); RED BLOOD COUNT 4.27 x10e6/uL (3.6-5.1)
[2020-12-23 13:32] LABS: ALANINE AMINOTRANSFERASE 19 IU/L (0-55); ALBUMIN 3.9 g/dL (3.5-5.0); ALBUMIN/GLOBULIN RATIO 1.1 (0.8-2.0); ALKALINE PHOSPHATASE 124 IU/L (40-150); ANION GAP 17.1 mmol/L (8-16); BLOOD UREA NITROGEN 37 mg/dL (7-26); BUN/CREATININE RATIO 42 (6-25); CALCIUM 9.5 mg/dL (8.4-10.2); CARBON DIOXIDE 21 mmol/L (22-29); CHLORIDE 106 mmol/L (98-107); CREATINE KINASE 2131 IU/L (29-168); CREATININE, SERUM 0.89 mg/dL (0.57-1.11); EST GLOMERULAR FILTRATION RATE > 60 ML/MIN (60-); GLUCOSE 274 mg/dL (74-118); POTASSIUM 4.1 mmol/L (3.5-5.1); SODIUM 140 mmol/L (136-145)
[2020-12-23] MEDS ORDERED: CEFTRIAXONE SOD 1 GM/50 ML BAG IV SCH (14:15)
[2020-12-23] MEDS ORDERED: CEFTRIAXONE SOD 1 GM in SODIUM CHLORIDE 0.9% 50ML 50 ML IV SCH (14:30)
[2020-12-23] MEDS: CEFTRIAXONE SOD 1 GM in SODIUM CHLORIDE 0.9% 50ML 50 ML IV SCH (14:49)
[2020-12-23] MEDS: SODIUM CHLORIDE 0.9% 1000ML 1,000 ML IV SCH (14:49)
[2020-12-23 18:11] VITALS: BP 127/43
[2020-12-23] MEDS ORDERED: LOSARTAN POTASS25 MG PO (18:36)
[2020-12-23] MEDS ORDERED: ARICEPT5 MG PO (18:36)
[2020-12-23 19:49] VITALS: BP 166/68
[2020-12-23 20:00] VITALS: BP 166/68
[2020-12-23 21:00] VITALS: BP 166/68
[2020-12-23 22:05] LABS: CREATINE KINASE MB 29.6 ng/mL (0-5.0)
[2020-12-24] VITALS (8 sets, daily range): BP systolic 131–162; BP diastolic 56–73
[2020-12-24] MEDS: SODIUM CHLORIDE 0.9% 1000ML 1,000 ML IV SCH ×4 (00:06→22:34)
[2020-12-24] MEDS ORDERED: CEFTRIAXONE SOD 1 GM VIAL ONE ×2 (00:58→15:53)
[2020-12-24] MEDS ORDERED: SODIUM CHLORIDE 0.9% 50ML 50 ML ONE ×2 (00:59→15:54)
[2020-12-24] MEDS: CEFTRIAXONE SOD 1 GM in SODIUM CHLORIDE 0.9% 50ML 50 ML IV SCH ×2 (03:00→15:45)
[2020-12-24] MEDS ORDERED: PNEUMOCOCCAL VACCINE POLYVALENT 23 MCG/0.5 ML VIAL IM ONE (04:00)
[2020-12-24 05:10] LABS: BASOPHILS % 0.3 % (0.0-1.0); EOSINOPHILS # (AUTO) 0.2 (0.0-0.4); EOSINOPHILS % 1.7 % (0.0-6.0); HEMATOCRIT 38.9 % (34.2-44.1); HEMOGLOBIN 13.2 g/dL (12.0-16.0); LYMPHOCYTES # (AUTO) 1.8 (1.0-3.2); LYMPHOCYTES % 18.5 % (18.0-39.1); MEAN CORPUSCULAR HEMOGLOBIN 31.6 pg (28-32); MEAN CORPUSCULAR HGB CONC 33.9 g/dL (31-35); MEAN CORPUSCULAR VOLUME 93.1 fL (81-99); MONOCYTES # (AUTO) 0.8 (0.2-0.8); MONOCYTES % 7.9 % (4.4-11.3); NEUTROPHILS % 71.3 % (38.7-80.0); PLATELET COUNT 170 x10e3/uL (140-360); RED BLOOD COUNT 4.18 x10e6/uL (3.6-5.1)
[2020-12-24 05:39] LABS: ALANINE AMINOTRANSFERASE 26 IU/L (0-55); ALBUMIN 3.4 g/dL (3.5-5.0); ANION GAP 15.1 mmol/L (8-16); BLOOD UREA NITROGEN 27 mg/dL (7-26); BUN/CREATININE RATIO 36 (6-25); CALCIUM 8.8 mg/dL (8.4-10.2); CARBON DIOXIDE 19 mmol/L (22-29); CHLORIDE 108 mmol/L (98-107); CREATININE, SERUM 0.76 mg/dL (0.57-1.11); EST GLOMERULAR FILTRATION RATE > 60 ML/MIN (60-); GLUCOSE 203 mg/dL (74-118); POTASSIUM 4.1 mmol/L (3.5-5.1); SODIUM 138 mmol/L (136-145)
[2020-12-24 05:40] LABS: ALKALINE PHOSPHATASE 109 IU/L (40-150)
[2020-12-24 06:13] LABS: CREATINE KINASE MB 23.2 ng/mL (0-5.0)
[2020-12-24] MEDS ORDERED: DEXTROSE 50% SYRINGE 50 ML IV PRN (06:45)
[2020-12-24] MEDS: ALBUTEROL SULFATE HFA 8GM INHALATION AEROSOL INH SCH ×2 (09:00→20:15)
[2020-12-24] MEDS: INSULIN REGULAR, HUMAN 100 UNIT/1 ML 3ML VIAL SQ SCH ×4 (09:02→20:40)
[2020-12-24] MEDS: LOSARTAN POTASSIUM 25 MG TAB PO SCH (09:03)
[2020-12-24] MEDS: CARBIDOPA/LEVODOPA 25/100 TAB PO SCH ×4 (09:03→20:40)
[2020-12-24] MEDS: MONTELUKAST SODIUM 10 MG TAB PO SCH (09:03)
[2020-12-24] MEDS: DONEPEZIL HCL 5 MG TAB PO SCH (09:03)
[2020-12-24 14:21] LABS: CREATINE KINASE MB 11.5 ng/mL (0-5.0)
[2020-12-24] MEDS: SERTRALINE HCL 50 MG TAB PO SCH (20:40)
[2020-12-24] MEDS: CHOLESTYRAMINE 4 GM PACKET PO SCH (22:32)
[2020-12-25] VITALS (8 sets, daily range): BP systolic 123–162; BP diastolic 53–67
[2020-12-25] MEDS ORDERED: CEFTRIAXONE SOD 1 GM VIAL ONE ×2 (03:01→13:28)
[2020-12-25] MEDS ORDERED: SODIUM CHLORIDE 0.9% 50ML 50 ML ONE ×2 (03:02→13:29)
[2020-12-25] MEDS: CEFTRIAXONE SOD 1 GM in SODIUM CHLORIDE 0.9% 50ML 50 ML IV SCH ×2 (03:53→14:22)
[2020-12-25] MEDS: ALBUTEROL SULFATE HFA 8GM INHALATION AEROSOL INH SCH ×2 (06:24→19:30)
[2020-12-25] MEDS: INSULIN REGULAR, HUMAN 100 UNIT/1 ML 3ML VIAL SQ SCH ×4 (07:30→20:21)
[2020-12-25] MEDS: DONEPEZIL HCL 5 MG TAB PO SCH (09:00)
[2020-12-25] MEDS: LOSARTAN POTASSIUM 25 MG TAB PO SCH (09:00)
[2020-12-25] MEDS: CARBIDOPA/LEVODOPA 25/100 TAB PO SCH ×4 (09:00→20:21)
[2020-12-25] MEDS: MONTELUKAST SODIUM 10 MG TAB PO SCH (09:00)
[2020-12-25] MEDS: SODIUM CHLORIDE 0.9% 1000ML 1,000 ML IV SCH ×2 (09:05→13:07)
[2020-12-25] MEDS: SERTRALINE HCL 50 MG TAB PO SCH (20:21)
[2020-12-25] MEDS: CHOLESTYRAMINE 4 GM PACKET PO SCH (21:37)
[2020-12-26] VITALS (7 sets, daily range): BP systolic 132–179; BP diastolic 61–78
[2020-12-26] MEDS: SODIUM CHLORIDE 0.9% 1000ML 1,000 ML IV SCH ×3 (00:54→14:15)
[2020-12-26] MEDS: CEFTRIAXONE SOD 1 GM in SODIUM CHLORIDE 0.9% 50ML 50 ML IV SCH ×2 (02:16→15:00)
[2020-12-26] MEDS ORDERED: CEFTRIAXONE SOD 1 GM VIAL ONE ×2 (02:21→14:45)
[2020-12-26] MEDS ORDERED: SODIUM CHLORIDE 0.9% 50ML 50 ML ONE ×2 (02:22→14:46)
[2020-12-26] MEDS: INSULIN REGULAR, HUMAN 100 UNIT/1 ML 3ML VIAL SQ SCH ×4 (07:30→21:27)
[2020-12-26] MEDS: ALBUTEROL SULFATE HFA 8GM INHALATION AEROSOL INH SCH ×2 (08:25→19:35)
[2020-12-26] MEDS: CARBIDOPA/LEVODOPA 25/100 TAB PO SCH ×4 (09:00→21:20)
[2020-12-26] MEDS: MONTELUKAST SODIUM 10 MG TAB PO SCH (09:00)
[2020-12-26] MEDS: LOSARTAN POTASSIUM 25 MG TAB PO SCH (09:00)
[2020-12-26] MEDS: DONEPEZIL HCL 5 MG TAB PO SCH (09:00)
[2020-12-26] MEDS: CHOLESTYRAMINE 4 GM PACKET PO SCH (21:20)
[2020-12-26] MEDS: SERTRALINE HCL 50 MG TAB PO SCH (21:20)
[2020-12-27] VITALS: BP 138/50
[2020-12-27 00:23] VITALS: BP 143/61
[2020-12-27] MEDS: SODIUM CHLORIDE 0.9% 1000ML 1,000 ML IV SCH ×2 (02:01→06:15)
[2020-12-27] MEDS ORDERED: CEFTRIAXONE SOD 1 GM VIAL ONE ×2 (02:13→16:41)
[2020-12-27] MEDS ORDERED: SODIUM CHLORIDE 0.9% 50ML 50 ML ONE ×2 (02:14→16:41)
[2020-12-27] MEDS: CEFTRIAXONE SOD 1 GM in SODIUM CHLORIDE 0.9% 50ML 50 ML IV SCH ×2 (02:40→16:42)
[2020-12-27 04:00] VITALS: BP 132/72
[2020-12-27 05:18] LABS: HEMATOCRIT 36.2 % (34.2-44.1); HEMOGLOBIN 12.1 g/dL (12.0-16.0); MEAN CORPUSCULAR HGB CONC 33.4 g/dL (31-35); MEAN CORPUSCULAR VOLUME 92.8 fL (81-99); PLATELET COUNT 181 x10e3/uL (140-360); RED CELL DISTRIBUTION WIDTH 12.2 % (11.7-14.4)
[2020-12-27 06:00] LABS: ANION GAP 13.9 mmol/L (8-16); BLOOD UREA NITROGEN 17 mg/dL (7-26); BUN/CREATININE RATIO 25 (6-25); CALCIUM 8.3 mg/dL (8.4-10.2); CARBON DIOXIDE 22 mmol/L (22-29); CHLORIDE 106 mmol/L (98-107); CREATINE KINASE 148 IU/L (29-168); CREATININE, SERUM 0.67 mg/dL (0.57-1.11); EST GLOMERULAR FILTRATION RATE > 60 ML/MIN (60-); GLUCOSE 121 mg/dL (74-118); POTASSIUM 3.9 mmol/L (3.5-5.1); SODIUM 138 mmol/L (136-145)
[2020-12-27 07:20] LABS: EOSINOPHILS % (MANUAL) 3 % (0-7); NEUTROPHILS % (MANUAL) 73 % (40-74); PLATELET ESTIMATE ADEQUATE; PLATELET MORPHOLOGY COMMENT NORMAL; RBC MORPHOLOGY COMMENT NORMAL
[2020-12-27 07:21] LABS: LYMPHOCYTES % (MANUAL) 20 % (19-48); MONOCYTES % (MANUAL) 3 % (3.4-9.0)
[2020-12-27 07:49] VITALS: BP 132/72
[2020-12-27] MEDS: INSULIN REGULAR, HUMAN 100 UNIT/1 ML 3ML VIAL SQ SCH ×3 (08:30→16:45)
[2020-12-27] MEDS: ALBUTEROL SULFATE HFA 8GM INHALATION AEROSOL INH SCH (08:34)
[2020-12-27] MEDS: LOSARTAN POTASSIUM 25 MG TAB PO SCH (08:38)
[2020-12-27] MEDS: MONTELUKAST SODIUM 10 MG TAB PO SCH (08:38)
[2020-12-27] MEDS: DONEPEZIL HCL 5 MG TAB PO SCH (08:38)
[2020-12-27] MEDS: CARBIDOPA/LEVODOPA 25/100 TAB PO SCH ×3 (08:38→16:42)
[2020-12-27 08:55] VITALS: BP 147/75
[2020-12-27 15:23] VITALS: BP 156/55
== END 2020-12-27 19:41 | DRG 871 ==
LOC: ER 11:14 → ERHOLD 14:06 → MED/SURG2 17:35 → OBSVTOIN 12-25 08:56
PROVIDERS: ADMIT Internal Medicine; ATTEND Internal Medicine
DX: A41.9 Sepsis, unspecified organism (principal); S32.409A Unspecified fracture of unspecified acetabulum, initial encounter for closed fracture; N39.0 Urinary tract infection, site not specified; E87.2 Acidosis; G20 Parkinson's disease; F32.9 Major depressive disorder, single episode, unspecified; B96.20 Unspecified Escherichia coli [E. coli] as the cause of diseases classified elsewhere; I10 Essential (primary) hypertension; E11.40 Type 2 diabetes mellitus with diabetic neuropathy, unspecified; E66.9 Obesity, unspecified; Z68.30 Body mass index [BMI] 30.0-30.9, adult; S09.90XA Unspecified injury of head, initial encounter; Z20.822 Contact with and (suspected) exposure to COVID-19
CPT/HCPCS: 36415; 70450; 71045; 72192; 73521; 80048; 80053; 81001; 82550; 82553; 82948; 83880; 84484; 85007; 85025; 85027; 87040; 87086; 87186; 90732; 93005; 96361; 97139; 99284; G0378; J0696; J1817; J7030; U0002